=== PATIENT | male | born 1945 | race Caucasian/White ===

== ENCOUNTER 2017-06-23 06:14 | Inpatient (IN) | payer BC, OTHER ==
[2017-06-05 09:31] VITALS: BMI 37.0
--- NOTE | 2017-06-05 09:59 | PAT Medication Instructions ---
Service Date Jun 05, 2017. Current Home Medication List Aspirin (Aspirin Ec), 81 MG PO QAM Atorvastatin (Lipitor), 80 MG PO HS Fish Oil ([place]-3), 1 CAP PO 2-3 X WEK Flaxseed (Linseed) (Flax Seed Oil), 1,000 MG PO 2-3 X WEEK Lisinopril (Zestril), 20 MG PO QAM Multivitamin (Multivitamin), 1 TAB PO QAM Nitroglycerin (Nitrostat), 0.4 MG UT PRN PRN for Chest Pain Medication Instructions For Your Scheduled Surgery Continue as directed: Nitroglycerin (Nitrostat), 0.4 MG UT PRN PRN for Chest Pain - Hold the following medications 2 weeks prior to surgery: Fish Oil ([place]-3), 1 CAP PO 2-3 X WEK Flaxseed (Linseed) (Flax Seed Oil), 1,000 MG PO 2-3 X WEEK - Hold the following medications the morning of surgery: Lisinopril (Zestril), 20 MG PO QAM Multivitamin (Multivitamin), 1 TAB PO QAM - Take the following medications the morning of surgery with a sip of water: Aspirin (Aspirin Ec), 81 MG PO QAM - Take the following medications as scheduled the night before surgery: Atorvastatin (Lipitor), 80 MG PO HS If you have any questions please call us at [phone] or [phone] or [phone]
[2017-06-05 10:52] LABS: BASO % 0.2 %; BASO ABS # 0.02 K/uL (0-0.2); EOS % 2.9 %; EOS ABS # 0.24 K/uL (0-0.5); HEMATOCRIT 43.6 % (42-52); HEMOGLOBIN 14.6 g/dL (14.0-18.0); IG# 0.02 K/uL (0.00-0.02); LYMPH % 24.4 %; LYMPH ABS # 1.99 K/uL (1.2-3.4); MEAN CELL VOLUME 98.4 fL (80-100); MEAN CORPUSCULAR HGB CONC 33.5 g/dl (32-36); MEAN PLATELET VOLUME 9.4 fL (7.4-10.4); MONO % 8.2 %; MONO ABS # 0.67 K/uL (0.11-0.59); NEUT % 64.1 %; NEUT ABS # 5.21 K/uL (1.4-6.5); PLATELET COUNT 237 K/uL (130-400); RED CELL DISTRIBUTION WIDTH CV 13.9 % (11.5-14.5); RED CELL DISTRIBUTION WIDTH SD 49.7 fL (36.4-46.3); WHITE BLOOD COUNT 8.15 K/uL (4.8-10.8)
--- NOTE | 2017-06-05 11:00 | DIAGNOSTIC IMAGING REPORT ---
CHEST 2 VIEWS ROUTINE CLINICAL HISTORY: Preoperative chest COMPARISON STUDY: 10/22/2013 FINDINGS: The cardiac and mediastinal contours remain stable. There is chronic bibasal interstitial thickening/scarring.[There is no acute parenchymal consolidation. There is no failure. There are no pleural effusions. Degenerative changes are present within the dorsal spine with bridging calcification of the anterior longitudinal ligament. IMPRESSION: No significant change from the preceding study. No active disease in the chest. Electronically signed by: Juan Wells M.D. 06/05/2017 10:59 AM Dictated Date/Time: 06/05/2017 10:58 AM
[2017-06-05 11:03] LABS: PTT PATIENT 24.4 SECONDS (21.0-31.0)
[2017-06-05 11:17] LABS: BLOOD UREA NITROGEN 22 mg/dl (7-18); CALCIUM 9.1 mg/dl (8.5-10.1); CARBON DIOXIDE 26 mmol/L (21-32); CREATININE 0.75 mg/dl (0.60-1.40); GLUCOSE 93 mg/dl (70-99); POTASSIUM 4.4 mmol/L (3.5-5.1); SODIUM 138 mmol/L (136-145)
[~2017-06-23] VITALS: Ht 171.4 cm; Wt 105.8 kg
[2017-06-23] VITALS (19 sets, daily range): BP systolic 100–133; BP diastolic 56–69; PULSE 51–65; TEMP 36.3–36.8; O2SAT 94–100; Ht 171.4 cm; Wt 105.8 kg
[~2017-06-23 06:14] MED LIST: ACETAMINOPHEN 500 MG TAB PO SCH; ASPI81TA28 PO; ATOR-26 PO; CEFAZOLIN 2000MG IV PUSH 10 ML IV SCH; FAMOTIDINE 20 MG TAB PO SCH; FLAX1CAP11 PO; GABAPENTIN 300 MG CAP PO SCH; LACTATED RINGER'S 1000ML 1,000 ML IV SCH; LACTATED RINGER'S 1000ML 500 ML IV SCH; LACTATED RINGER'S 1000ML IV SCH; LISI-725 PO; METOCLOPRAMIDE HCL 10 MG TAB PO SCH; MULT-506 PO; NTRGSL/4 UT; OMEG10007 PO; SCOPOLAMINE 1.5 MG TDSY TD SCH; TRANEXAMIC ACID INJ 1,000 MG in SYRINGE 0 ML IV SCH
[2017-06-23] MEDS ORDERED: BUPIVACAINE 0.5 % 5 MG/1 ML PF 10ML VIAL ONE (06:37)
[2017-06-23] MEDS ORDERED: IBUP-103 PO (06:40)
--- NOTE | 2017-06-23 06:43 | History and Physical ---
History & Physical Date Jun 23, 2017. Chief Complaint Right Hip Pain. History of Present Illness The patient is a 71 year old male with complaints of Right Hip Pain. Progressive over past few years despite conservative care. Additional History Hepatic Disease: No Endocrine Disorder: No Kidney Disease: No Hypertension: Yes Heart Disease: Yes Bleeding Tendencies: No Infectious Diseases: No Allergies Coded Allergies: No Known Allergies (Unverified , 06/23/17) Home Medications Scheduled Aspirin (Aspirin Ec), 81 MG PO QAM Atorvastatin (Lipitor), 80 MG PO HS Fish Oil ([place]-3), 1 CAP PO 2-3 X Week Flaxseed (Linseed) (Flax Seed Oil), 1,000 MG PO 2-3 X WEEK Lisinopril (Zestril), 20 MG PO QAM Multivitamin (Multivitamin), 1 TAB PO QAM Scheduled PRN Ibuprofen Tab (Advil), 400 MG PO Q6 PRN for Pain Nitroglycerin (Nitrostat), 0.4 MG UT PRN PRN for Chest Pain Physical Examination Skin: warm/dry, no rash Eyes: normal inspection, EOMI, sclerae normal ENT: normal ENT inspection, pharynx normal Head: normocephalic, atraumatic Neck: supple, no adenopathy, trachea midline Respiratory/Chest: lungs clear, normal breath sounds, no respiratory distress Cardiovascular: regular rate, rhythm, no edema, no murmur Abdomen / GI: normal bowel sounds, non tender Back: normal inspection Extremities: normal inspection, normal range of motion Neurologic/Psych: no motor/sensory deficits, alert, normal reflexes, oriented x 3 Addiitonal Comments: Walks with limp. Pain with any hip ROM. Limited Internal Rotation. Diagnosis Severe Right Hip DJD Plan of Treatment Right Total Hip Arthroplasty.
--- NOTE | 2017-06-23 06:43 | History & Physical Bridge Note ---
H&P Re-Evaluation Bridge Note: I have examined the patient, reviewed the History & Physical and in the interval since the performance of the History & Physical I have noted the following changes of clinical significance: No changes noted
[2017-06-23] MEDS ORDERED: MIDAZOLAM HCL 1 MG/ML 2ML VIAL ONE ×2 (08:15→08:59)
[2017-06-23] MEDS ORDERED: BACITRACIN 50000 UNIT VIAL ONE (08:31)
[2017-06-23] MEDS ORDERED: BUPIVACAINE 0.5 % 5 MG/1 ML MPF 30ML VIAL ONE (08:31)
[2017-06-23] MEDS ORDERED: PROPOFOL IV EMULSION 10 MG/ML 20 ML VIAL IV ONE ×2 (08:59→09:53)
[2017-06-23] MEDS ORDERED: NALOXONE HCL INJ 1 MG in SODIUM CHLORIDE 0.9% 1000ML 1,000 ML IV PRN (09:00)
[2017-06-23] MEDS ORDERED: DiphenhydrAMINE HCL 50 MG/ML VIAL IV PRN (09:00)
[2017-06-23] MEDS ORDERED: SODIUM CHLORIDE 0.9% 1000ML 1,000 ML IV PRN (09:00)
[2017-06-23] MEDS ORDERED: MoRPHine SULFATE 2 MG/ML CARP IV PRN (09:00)
[2017-06-23] MEDS ORDERED: ONDANSETRON INJ 2 MG/ML 2 ML VIAL IV PRN (09:00)
[2017-06-23] MEDS ORDERED: NALBUPHINE HCL INJ 10 MG/ML AMP IV PRN (09:00)
[2017-06-23] MEDS ORDERED: NALOXONE HCL 0.4 MG/1 ML VIAL/CARP IV PRN (09:00)
[2017-06-23] MEDS ORDERED: KETOROLAC TROMETHAMINE 30 MG/ML VIAL IV. PRN (09:00)
[2017-06-23] MEDS ORDERED: EpHEDrine SULFATE INJ 50 MG/ML AMP IV PRN (09:00)
[2017-06-23] MEDS ORDERED: LACTATED RINGER'S 1000ML 500 ML IV PRN (09:00)
[2017-06-23] MEDS ORDERED: NO NARCOTICS OR SEDATIVES SCH (09:00)
[2017-06-23] MEDS ORDERED: MoRPHine SULFATE PF 1 MG/ML 10 ML AMP/VIAL EPI PRN (09:00)
[2017-06-23] MEDS ORDERED: NALOXONE HCL INJ 0.08 MG in SYRINGE 1.8 ML IV PRN (09:00)
[2017-06-23] MEDS ORDERED: MEPERIDINE HCL 25 MG/ML CARP IV PRN (09:00)
[2017-06-23] MEDS ORDERED: KETAMINE HCL INJ 50 MG/ML 10 ML VIAL ONE (09:09)
[2017-06-23] MEDS ORDERED: PHENYLEPHRINE 100MCG/ML 5ML SYR ONE (09:18)
[2017-06-23] MEDS ORDERED: ONDANSETRON INJ 2 MG/ML 2 ML VIAL ONE (09:18)
[2017-06-23] MEDS ORDERED: EpHEDrine SULFATE 50MG/5ML SYR ONE (09:18)
[2017-06-23] MEDS ORDERED: PHENYLEPHRINE HCL INJ 10 MG/ML VIAL ONE (09:24)
--- NOTE | 2017-06-23 10:35 | [facility] Post Operative Brief Note ---
Immediate Operative Summary Operative Date Jun 23, 2017. Pre-Operative Diagnosis Right hip degenerative joint disease Post-Operative Diagnosis Right hip degenerative joint disease Procedure(s) Performed Right total hip arthroplasty Surgeon Dr. Rosen [employer] Associate Surgeon(s) Mike Martinez PA-C Estimated Blood Loss 350 mL Findings Right Hip DJD Fluids (cc crystalloids) 1400 cc Specimens A: Right femoral head Drains None Anesthesia Spinal Complication(s) None Accompanied patient to RR where Post-op note done. Disposition Recovery Room / PACU
[2017-06-23] MEDS ORDERED: FLAXSEED 1000 MG PO SCH (10:45)
[2017-06-23] MEDS ORDERED: TAMSULOSIN HCL 0.4 MG CAP PO PRN (10:45)
[2017-06-23] MEDS ORDERED: NITROGLYCERIN 0.4 MG SL PER TAB CHARGE UT PRN (10:45)
[2017-06-23] MEDS ORDERED: CEFAZOLIN IV 2,000 MG in DEXTROSE 5% 50ML 50 ML IV SCH (10:45)
[2017-06-23] MEDS ORDERED: METOCLOPRAMIDE HCL INJ 5 MG/ML 2 ML VIAL IV PRN (10:45)
[2017-06-23] MEDS ORDERED: ALUMINUM/MAGNESIUM/SIMETH (MAALOX MAX) 30 ML UDC PO PRN (10:45)
[2017-06-23] MEDS ORDERED: BISACODYL 10 MG SUPP PR PRN (10:45)
[2017-06-23] MEDS ORDERED: SILVER SULFADIAZINE 1% CR 50 GM JAR EXT PRN (10:45)
[2017-06-23] MEDS ORDERED: MAGNESIUM HYDROXIDE SUSP 30 ML UDC PO PRN (10:45)
--- NOTE | 2017-06-23 11:33 | OPERATIVE REPORT ---
DATE OF OPERATION: 06/23/2017 PREOPERATIVE DIAGNOSIS: Right hip degenerative joint disease. POSTOPERATIVE DIAGNOSIS: Same. PROCEDURE PERFORMED: Right uncemented total hip arthroplasty. SURGEON: Dr. Rj Rosen. PHOTOENGRAVING APPRENTICE: Mike Martinez PA-C. COMPLICATIONS: None. ESTIMATED BLOOD LOSS: 350 mL. FLUID REPLACEMENT: 1400 mL crystalloid fluid replacement. ANESTHESIA: Spinal. DRAINS: None. SPECIMENS: Right femoral head sent for pathology. OPERATIVE INDICATIONS: The patient is a 71-year-old gentleman who has had a long history of multiple arthritic joints. He has had both of his knees replaced in the past. Over the past several years, he has developed increased pain and discomfort in his right hip. He had failed conservative treatment. It was really starting to limit his ability to maintain an independent lifestyle and he elected to proceed with total hip arthroplasty. OPERATIVE FINDINGS: Operative findings reveal advanced right hip DJD. 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 Some flattening of the femoral head. Moderate size joint effusion. OPERATIVE IMPLANTS: Operative implants consisted of: 1. Biomet G7 size 54 mm acetabular shell. 2. A 6.5 cancellous acetabular screws, 1 at 35 mm length and 1 at 30 mm length. 3. An apex hole eliminator. 4. Highly cross-linked polyethylene liner with 54 mm outer diameter, 36 mm inner diameter. 5. DePuy size 13.5 small stature AML femoral stem. 6. A +1.5 x 32 mm metal articular ball. OPERATIVE PROCEDURE: The patient taken to the operating room, identified and placed on the operating room table in the supine position. All contact areas were appropriately padded. IV antibiotics were provided by anesthesia team. A spinal anesthetic had been implemented in the holding area. Lim catheter was placed in sterile fashion. The patient was then placed in the left lateral decubitus position. An axillary roll was placed. [facility] was used for positioning. The right hip and leg were then prepped and draped in the usual sterile fashion. A posterolateral approach to the right hip was then performed through a curvilinear incision centered over the greater trochanter. Sharp dissection was carried down through the subcutaneous tissues down to the level of the IT band and gluteal fascia. The IT band and gluteal fascia was incised longitudinally in line with skin incision. The underlying greater trochanteric bursa was excised. The pyriformis, external rotators, and posterior capsule were then released from the posterior aspect of the femur as a single layer. Great care was taken throughout the procedure to protect the sciatic nerve at all times. Hip was internally rotated and dislocated. Femoral neck osteotomy cut was made with the final cut about 10 mm above the lesser trochanter. Femoral head was removed and sent for pathology. The femur was retracted anteriorly. Attention was then drawn to the acetabulum. The acetabular labrum was excised. The pulvinar fat was excised. Sequential reaming of the acetabulum was then performed beginning with a size 47 reamer and progressing up to a 53. A 54 mm Biomet G7 acetabular shell was then placed in about 40 degrees of lateral opening and 20 degrees of anteversion. It was fixed with two 6.5 cancellous acetabular screws. A trial liner was placed. Attention was then drawn to the femur. The proximal femur was entered with a cookie cutter followed by canal finder and lateralizing reamer. Sequential reaming of the femur was then performed beginning with a size 10 and progressing up to a 13. We were getting pretty good chatter at 13 and he did have some bow to his femur, so I elected to stop there. I then broached beginning with a size 10.5 small broach and progressing up to 13.5 small. We got good metaphyseal fit. I trialed the hip. The hip was fully stable, but I felt a little bit long with the +5 implant. We placed a +1.5 implant. The hip was fully stable in full extension and external rotation and flexion to 90 degrees, internal rotation over 50 degrees. There was a little bit of soft tissue laxity, but I felt his leg lengths were equal, so we accepted this. All trial implants were removed. An apex hole eliminator was placed. A highly cross-linked polyethylene liner was placed with the levin placed inferior and posterior to maximize his stability in flexion. A 13.5 small stature AML femoral stem was then placed. A +1.5/36 mm metal articular ball was placed. The hip was located and once again found to be stable. Attention was then drawn toward closing. The wound was irrigated with copious amounts of pulsatile lavage solution. I did inject locally with 60 mL of 0.5% Marcaine with epinephrine. The posterior capsule and external rotators were then repaired as a single layer through drill holes in the posterior trochanter with #2 Ti-Cron suture. The IT band and gluteal fascia were then closed with #1 PDS suture in running fashion. The subcutaneous tissues were then closed in 2 layers with a deep layer #1 Vicryl suture and subcutaneous tissues with 2-0 Dexon suture in a buried interrupted fashion. Skin was closed skin constance. Leg was then cleaned and dried and a sterile dressing of Xeroform, 4 x 4, ABD pad and foam tape was applied. The patient then transferred to the recovery room in stable condition. The patient tolerated the procedure with no complications. All needle and sponge counts were correct at the end of the operation. I attest to the content of the Intraoperative Record and any orders documented therein. Any exception s are noted below.
--- NOTE | 2017-06-23 11:51 | Anesthesiology Progress Note ---
Anesthesia Post Op Note Date & Time Jun 23, 2017 at 11:51 Vital Signs Pain Intensity: 0 Vital Signs Past 12 Hours Date Time Temp Pulse Resp B/P (MAP) Pulse Ox O2 Delivery O2 Flow Rate FiO2 06/23/17 11:05 63 20 107/65 98 Nasal Cannula 2 06/23/17 10:50 37.2 61 17 115/55 97 Nasal Cannula 2 06/23/17 10:43 70 13 106/61 97 Nasal Cannula 2 06/23/17 10:34 36.4 89 17 115/58 98 Nasal Cannula 2 06/23/17 06:47 36.7 58 18 133/67 95 Room Air Notes Mental Status: alert / awake / arousable, participated in evaluation Pt Amnestic to Procedure: Yes Nausea / Vomiting: adequately controlled Pain: adequately controlled Airway Patency, RR, SpO2: stable & adequate BP & HR: stable & adequate Hydration State: stable & adequate Neuraxial Anesthesia: was administered, sensory block is resolving Anesthetic Complications: no major complications apparent
[2017-06-23] MEDS: D5W AND 1/2NSS + 20MEQ KCL 1,000 ML IV SCH ×2 (13:11→19:53)
[2017-06-23] MEDS: ACETAMINOPHEN 500 MG TAB PO SCH ×2 (14:02→21:47)
--- NOTE | 2017-06-23 15:25 | DIAGNOSTIC IMAGING REPORT ---
R PELVIS/UNILATERAL HIP 1 VIEW HISTORY: 71 years-old Male IN PACU - A/P PELVIS and LATERAL HIP INCLUDING ALL OF IMPLANT status post right hip arthroplasty. Degenerative joint disease. COMPARISON: Right hip radiographs 06/10/2017 TECHNIQUE: AP view the pelvis with crosstable lateral view of the right hip FINDINGS: Bony pelvis appears intact. No pelvic ring fracture identified. Severe left hip osteoarthritis. Status post right hip arthroplasty with satisfactory alignment. No periprosthetic fracture or malalignment. Skin constance are noted along with deep tissue air and soft tissue swelling about the right hip. IMPRESSION: Right hip arthroplasty with satisfactory alignment. The above report was generated using voice recognition software. It may contain grammatical, syntax or spelling errors. Electronically signed by: Isai Lerma M.D. 06/23/2017 3:24 PM Dictated Date/Time: 06/23/2017 3:22 PM
[2017-06-23] MEDS: CHECK SCOPOLAMINE PATCH PLACEMENT SCH ×2 (15:42→23:36)
[2017-06-23] MEDS: CEFAZOLIN IV 2,000 MG in SYRINGE 0 ML IV SCH ×2 (15:42→23:36)
[2017-06-23] MEDS ORDERED: TRANEXAMIC ACID INJ 1,000 MG in SODIUM CHLORIDE 0.9% 100ML 100 ML IV SCH (16:30)
[2017-06-23] MEDS: FERROUS GLUCONATE 324 MG TAB PO SCH (17:41)
[2017-06-23] MEDS: KETOROLAC TROMETHAMINE 15 MG/ML VIAL IV. SCH ×2 (17:42→23:36)
[2017-06-23] MEDS: DOCUSATE SODIUM 100 MG CAP PO SCH (20:42)
[2017-06-23] MEDS: ASPIRIN 325 MG ECTAB PO SCH (20:42)
[2017-06-23] MEDS: ATORVASTATIN 40 MG TAB PO SCH (20:43)
[2017-06-23] MEDS: SENNA 8.6 MG TAB PO SCH (20:43)
[2017-06-24] VITALS (10 sets, daily range): BP systolic 109–155; BP diastolic 58–72; PULSE 60–77; TEMP 36.5–37.8; O2SAT 94–99
[2017-06-24] MEDS: D5W AND 1/2NSS + 20MEQ KCL 1,000 ML IV SCH ×2 (01:59→08:30)
[2017-06-24] MEDS ORDERED: DC INTRASPINAL MORPHINE SCH (02:30)
[2017-06-24] MEDS ORDERED: ONDANSETRON INJ 2 MG/ML 2 ML VIAL IV PRN (02:30)
[2017-06-24] MEDS ORDERED: HYDROmorphone INJ 0.5 MG/0.5 ML SYR IV PRN (02:30)
[2017-06-24] MEDS ORDERED: ZOLPIDEM TARTRATE 5 MG TAB PO PRN (02:30)
[2017-06-24 06:00] LABS: BASO % 0.3 %; BASO ABS # 0.03 K/uL (0-0.2); EOS % 2.2 %; HEMATOCRIT 35.9 % (42-52); HEMOGLOBIN 11.9 g/dL (14.0-18.0); IG# 0.03 K/uL (0.00-0.02); LYMPH % 14.3 %; LYMPH ABS # 1.32 K/uL (1.2-3.4); MEAN CELL VOLUME 98.1 fL (80-100); MEAN CORPUSCULAR HEMOGLOBIN 32.5 pg (25-34); MEAN CORPUSCULAR HGB CONC 33.1 g/dl (32-36); MEAN PLATELET VOLUME 9.5 fL (7.4-10.4); MONO % 10.2 %; MONO ABS # 0.94 K/uL (0.11-0.59); NEUT % 72.7 %; NEUT ABS # 6.73 K/uL (1.4-6.5); PLATELET COUNT 215 K/uL (130-400); RED CELL DISTRIBUTION WIDTH CV 13.4 % (11.5-14.5); RED CELL DISTRIBUTION WIDTH SD 48.5 fL (36.4-46.3); WHITE BLOOD COUNT 9.25 K/uL (4.8-10.8)
[2017-06-24] MEDS: KETOROLAC TROMETHAMINE 15 MG/ML VIAL IV. SCH ×3 (06:05→17:45)
[2017-06-24] MEDS: ACETAMINOPHEN 500 MG TAB PO SCH ×3 (06:06→22:06)
[2017-06-24 06:30] LABS: CALCIUM 7.8 mg/dl (8.5-10.1); CREATININE 0.88 mg/dl (0.60-1.40); POTASSIUM 4.2 mmol/L (3.5-5.1)
--- NOTE | 2017-06-24 07:57 | PROGRESS NOTE ---
DATE: 06/24/2017 SUBJECTIVE: A 71-year-old gentleman postop day 1 from right total hip replacement. He is doing well. Denies any significant pain. No chest pain or shortness of breath. Not feeling dizzy or lightheaded. OBJECTIVE: VITAL SIGNS: Temperature 36.9. Vital signs stable. GENERAL: Reveals a pleasant, middle-aged male. He is sitting up in bed and looks pretty comfortable. LUNGS: Clear to auscultation. HEART: Regular rate and rhythm. ABDOMEN: Soft, nontender, nondistended. EXTREMITIES: Grossly neurovascularly intact except as follows: Examination of the right hip and leg reveals leg lengths to be equal. His dressing is clean, dry and intact. Thigh is soft and supple. No significant swelling. Hip is located. He is neurologically intact. He can dorsiflex and plantarflex his foot appropriately. LABORATORY DATA: Hemoglobin 11.9, hematocrit 35.9. Electrolytes are stable. ASSESSMENT: A 71-year-old gentleman postop day 1 from right total hip replacement, doing well. Pain is controlled. Hip is located. He is neurologically intact. PLAN: 1. DVT prophylaxis including thigh-high TEDs, SCDs, and aspirin twice a day. 2. PT/OT. Weightbearing as tolerated. Right total hip protocol. 3. Pain control, doing well with current pain regimen. 4. Disposition: Plan to discharge to home with some home health once adequately recovered.
[2017-06-24] MEDS: CHECK SCOPOLAMINE PATCH PLACEMENT SCH ×2 (08:28→16:13)
[2017-06-24] MEDS: LISINOPRIL 20 MG TAB PO SCH (08:31)
[2017-06-24] MEDS: FERROUS GLUCONATE 324 MG TAB PO SCH ×3 (08:31→17:45)
[2017-06-24] MEDS: MULTIVITAMIN TAB PO SCH (08:31)
[2017-06-24] MEDS: ASPIRIN 325 MG ECTAB PO SCH ×2 (08:32→20:00)
[2017-06-24] MEDS: DOCUSATE SODIUM 100 MG CAP PO SCH ×2 (08:32→20:01)
[2017-06-24] MEDS: TRAMADOL HCL 50 MG TAB PO PRN (08:35)
[2017-06-24] MEDS ORDERED: PANTOprazole SOD 40 MG TAB PO SCH (09:00)
[2017-06-24] MEDS ORDERED: MULTIVITAMIN TAB PO SCH (09:00)
[2017-06-24] MEDS ORDERED: ULT50X PO (17:51)
[2017-06-24] MEDS ORDERED: ASPEC325 PO (17:51)
[2017-06-24] MEDS ORDERED: ACET-24 PO (17:51)
--- NOTE | 2017-06-24 17:54 | Discharge Instructions ---
Discharge Instructions Date of Service Jun 24, 2017. Admission Reason for Admission: Right Hip Degenerative Joint Disease Discharge Discharge Diagnosis / Problem: Right Hip Replacement Discharge Goals Goal(s): Decrease discomfort, Improve function, Increase independence, Improve disease control, Therapeutic intervention Activity Recommendations Activity Limitations: per Instructions/Follow-up section (Total Hip Precautions ) Weightbearing Status: Right weightbearing . Instructions / Follow-Up Instructions / Follow-Up ACTIVITY RECOMMENDATIONS: Physical Therapy: * Aggressive physical therapy is not usually needed. You will learn to take care of yourself safely and walk. * Follow the "Hip Precautions Instructions." * In some cases, the social worker school at the hospital will arrange to have a therapist come to your house for the first couple of weeks to help you learn these skills. * You need to practice on your own or with the help of a family member as needed. * When you learn these skills, most of the therapy can be done on your own. Home Exercise: * You were shown a series of exercises in the hospital. Do these exercises three to four times each day including the exercises you were shown in physical therapy. Walking: * Get up and walk several times each day. For the first four weeks, try not to stand or walk for more than one hour at a time. If you do stand or walk for more than one hour, you will not hurt anything, but your leg will likely swell. * As you feel comfortable, you may change from the walker or crutches to a cane and then to independent walking. MEDICATIONS: New Medicine: * You will likely be taking one or more of these medicines: 1. Tramadol - Take, as directed, when you need it, every four to six hours to control your pain. 2. Aspirin - Thins your blood to lessen the chance of forming a blood clot. * The most common side effects of pain medicine and iron are nausea and constipation. If nausea or constipation is too much of a problem or if you have any questions about your new medicines or doses, call [facility] at [phone]. We will try to help you manage these issues. VERY IMPORTANT TO READ AND REVIEW" Pain: * The immediate post-operative period after hip replacement surgery is often quite painful. * You are given a prescription for pain medicine. You should take it, as directed, when you need it, especially before physical therapy and before going to bed. Pain that interferes with sleep is very common and can last several months. * You will likely need pain medicine for the first two to four weeks. It will not stop all of the pain. The pain will lessen and as you feel better, you may change to milder pain medicine such as Tylenol. * The most common side effects of pain medicine are nausea and constipation, so don't take more than you need. SPECIAL CARE INSTRUCTIONS: TEDs/Elastic Stockings: * The white elastic stockings help limit swelling and prevent blood clots from forming in your legs. The more you wear them, the more they work. * Wear them for six weeks. Prevention of Infection: * Take antibiotics one hour before any dental cleaning, dental work, urological procedure, gastrointestinal procedure or any invasive surgery in order to prevent your new joint from getting infected. * You may get the antibiotics from the doctor performing the procedure or you may call our office at before and we will call in a prescription to the pharmacy of your choice. Things to Watch For: * Drainage from the incision site that occurs more than one week after your surgery. * Severely increased leg pain or swelling. * Increased redness at the incision site. * Fever above 102 degrees Fahrenheit. * Unusual chest pain or shortness of breath. * Unusual pain or burning with urination. Call [facility] at with any of the above problems or if you have any questions about your medicines or recovery. FOLLOW UP VISIT: Make an appointment to see your doctor for approximately two weeks after surgery for a progress check and staple removal by calling the office at . Current Hospital Diet Patient's current hospital diet: Regular Diet Discharge Diet Recommended Diet: Regular Diet Procedures Procedures Performed: Right total hip arthroplasty Pending Studies Studies pending at discharge: no Medical Emergencies . Who to Call and When: Medical Emergencies: If at any time you feel your situation is an emergency, please call [phone] immediately. . Non-Emergent Contact Non-Emergency issues call your: Surgeon . "Provider Documentation" section prepared by Rj Rosen. . VTE Core Measure Inpt VTE Proph given/why not?: Other Anticoagulation, T.E.D. Stockings, SCD's
[2017-06-24] MEDS: SENNA 8.6 MG TAB PO SCH (20:00)
[2017-06-24] MEDS: ATORVASTATIN 40 MG TAB PO SCH (20:01)
[2017-06-24] MEDS ORDERED: NURSING VERBAL MED ORDER ONE (20:30)
[2017-06-25] MEDS: CHECK SCOPOLAMINE PATCH PLACEMENT SCH ×2 (00:10→07:43)
[2017-06-25] MEDS: KETOROLAC TROMETHAMINE 15 MG/ML VIAL IV. SCH ×3 (00:11→12:00)
[2017-06-25 06:10] VITALS: BP 131/67; PULSE 62; TEMP 36.8; O2SAT 94
[2017-06-25] MEDS: ACETAMINOPHEN 500 MG TAB PO SCH (06:13)
[2017-06-25] MEDS: LISINOPRIL 20 MG TAB PO SCH (07:43)
[2017-06-25] MEDS: MULTIVITAMIN TAB PO SCH (07:43)
[2017-06-25] MEDS: FERROUS GLUCONATE 324 MG TAB PO SCH ×2 (07:43→12:30)
[2017-06-25] MEDS: ASPIRIN 325 MG ECTAB PO SCH (07:43)
[2017-06-25] MEDS: DOCUSATE SODIUM 100 MG CAP PO SCH (07:44)
[2017-06-25] MEDS: TRAMADOL HCL 50 MG TAB PO PRN (07:46)
--- NOTE | 2017-06-25 07:54 | PROGRESS NOTE ---
DATE: 06/25/2017 SUBJECTIVE: A 71-year-old gentleman postop day #2 from a right total hip replacement. He is doing pretty well. Pain has been very well controlled. No chest pain or shortness of breath. Not feeling dizzy or lightheaded. OBJECTIVE: VITAL SIGNS: Temperature is 36.8. Vital signs stable. GENERAL: Physical examination reveals a healthy, pleasant, middle-aged male. He is lying in bed and looks comfortable. LUNGS: Clear to auscultation. HEART: Has a regular rate and rhythm. ABDOMEN: Soft, nontender, and nondistended. EXTREMITIES: Grossly neurovascularly intact except as follows: Examination of the right hip and leg reveals the dressing to be clean, dry and intact. Thigh is soft and supple. Hip is located. He is neurologically intact. ASSESSMENT: A 71-year-old gentleman postop day #2 from a right total hip replacement, doing well. Pain is controlled. Hip is located. He is neurologically intact. PLAN: 1. DVT prophylaxis including thigh-high TEDs, SCDs, and aspirin twice a day. 2. PT/OT. Weightbear as tolerated. Right total hip protocol. 3. Pain control. Doing well with current pain regimen. 4. Disposition: Plan to discharge to home with some home health likely later today if he does okay in therapy.
[2017-06-25 09:28] VITALS: BP 131/71; PULSE 69; O2SAT 97
[2017-06-25 12:41] VITALS: BP 131/67; PULSE 62; TEMP 36.8; O2SAT 94
== END 2017-06-25 13:48 | disposition home health service (06) | DRG 470 ==
LOC: C.ACU 06:14 → C.3E 06:35 → ENRESERV 10:58
PROVIDERS: ADMIT Orthopaedic Surgery Sports Medicine; ATTEND Orthopaedic Surgery Sports Medicine
PROC: 0SR902A Replacement of Right Hip Joint with Metal on Polyethylene Synthetic Substitute, Uncemented, Open Approach (ICD-10-PCS; principal; 2017-06-23 09:00)
DX: M16.11 Unilateral primary osteoarthritis, right hip (principal); I10 Essential (primary) hypertension; I25.10 Atherosclerotic heart disease of native coronary artery without angina pectoris; Z79.82 Long term (current) use of aspirin

== ENCOUNTER 2021-05-10 16:27 | Inpatient (IN) ==
[2021-05-10 17:13] LABS: Basophils # (auto) 0.02 K/uL (0-0.2); Basophils % (auto) 0.3 %; Eosinophils # (auto) 0.17 K/uL (0-0.5); Eosinophils % (auto) 2.6 %; Hematocrit (blood only) 45.2 % (42-52); Hemoglobin 14.6 g/dL (14.0-18.0); Immature Granulocytes # (auto) 0.01 K/uL (0.00-0.02); Immature Granulocytes % (auto) 0.2 %; Lymphocytes % (auto) 27.9 %; Mean Corpuscular Hemoglobin 32.9 pg (25-34); Mean Corpuscular Hgb Conc 32.3 g/dL (32-36); Mean Corpuscular Volume 101.8 fL (80-100); Mean Platelet Volume 9.5 fL (7.4-10.4); Monocytes # (auto) 0.64 K/uL (0.11-0.59); Monocytes % (auto) 9.9 %; Neutrophils # (auto) 3.81 K/uL (1.4-6.5); Neutrophils % (auto) 59.1 %; Platelet Count 291 K/uL (130-400); RDW Coefficient of Variation 16.9 % (11.5-14.5); RDW Standard Deviation 63.6 fL (36.4-46.3); Red Blood Count 4.44 M/uL (4.7-6.1); White Blood Count 6.45 K/uL (4.8-10.8)
--- NOTE | 2021-05-10 17:17 | XRay Report ---
XR chest 1V portable CLINICAL HISTORY: SOB. COMPARISON STUDY: 06/01/2018 TECHNIQUE: 1 view of the chest FINDINGS: Single frontal view of the chest demonstrates the heart size to be enlarged. There is diffuse interst itial and alveolar edema most characteristic of congestive heart failure. There is also evidence for left pleural effusion and left basilar atelectasis. No definite confluent alveolar opacities are seen . There is no evidence for vascular congestion. There is no acute osseous pathology. IMPRESSION: Diffuse interstitial and alveolar edema most characteristic of congestive heart failure. Small left pleural effusion and left basilar atelectasis also present. ACT 112: Negative or not required by law. Electronically signed by: Juan Fermin M.D. 05/10/2021 5:16 PM
[2021-05-10 17:22] LABS: INR 1.3 (0.9-1.1); Partial Thromboplastin Time 26.4 Seconds (21.0-31.0); Prothrombin Time 12.6 Seconds (9.0-12.0)
[2021-05-10 17:31] LABS: Albumin Level 2.9 gm/dl (3.4-5.0); BUN Creatinine Ratio 18.6 (10-20); Calcium 8.8 mg/dl (8.5-10.1); Creatinine Clr Calc Pharmacy 60.9 ml/min; Est GFR (African American) 60.3 ml/min; Magnesium 1.9 mg/dl (1.8-2.4); Potassium 5.1 mmol/L (3.5-5.1)
[2021-05-10] MEDS ORDERED: dilTIAZem HCl 5 MG/ML 5 ML VIAL IV STA (17:35)
[2021-05-10] MEDS ORDERED: STAT IV Infusion **Titration per Protocol STA (17:35)
[2021-05-10 17:39] LABS: Albumin Globulin Ratio 0.7 (0.9-2); Bilirubin,Total 1.5 mg/dl (0.2-1); Globulin 3.9 gm/dl (2.5-4.0); Total Protein 6.8 gm/dl (6.4-8.2); Troponin I 0.08 ng/ml (0-0.045)
[2021-05-10] MEDS ORDERED: Heparin IV Adult Wt-Based Low-Dose WITH Bolus Protocol STA (17:40)
--- NOTE | 2021-05-10 17:45 | Emergency Department Note ---
Impression & Plan Atrial fibrillation with rapid ventricular response, Severe aortic stenosis, CHF (congestive heart failure), Pulmonary edema ED Provider Note Provider: Arcenio Vaughn MD DATE OF SERVICE: 05/10/2021 CHIEF COMPLAINT: Fatigue, shortness of breath, swelling HISTORY OF PRESENT ILLNESS: Patient is a 75-year-old gentleman history of CAD, hypertension, and severe aortic stenosis who presents here today stating over the past 2 to 4 weeks he is developed little bit more fatigue and dyspnea on exe rtion. Reports he is noticed increase swelling in his legs and now through his abdomen. Patient denies any pain. Denies significant fevers or nausea or vomiting. Patient denies a history of similar. Patient states he cannot lie flat to sleep anymore and again feels swollen in his legs into the abdomen. Patient states he has noticed time his heart rates been elevated but denies a sensation of palpitations. Again denies chest pain. Follows with mom any cardiology. Patient is on a baby aspirin. Patient states over the past 2 to 3 weeks he is noted may be a 20 pound weight gain. REVIEW OF SYSTEMS: A total of 10 review of systems was obtained and negative except as stated above in the HPI. PAST MEDICAL HISTORY: As noted above MEDICATIONS:reviewed home medications SOCIAL HISTORY: Lives at home PHYSICAL EXAM: GENERAL: alert and oriented in no acute distress seated on stretcher Head: normocephalic and atraumatic EYES: No injection, discharge or icterus. NECK: Trachea midline. LUNGS: Airway patent. No retractions. Breath sounds clear with good air entry bilaterally. HEART: Tachycardic irregularly irregular rate and rhythm. No chest wall tenderness ABDOMEN: Soft and non-tender, without guarding or rebound with mild distention BACK: No midline tenderness, No bilateral flank tenderness. SKIN: Acyanotic, warm, dry EXTREMITIES: Bilateral lower extremity edema approximately 3+ without obvious weeping. NEUROLOGICAL: No focal deficits. No aphasia. No facial droop or slurred speech. Ambulatory. EK bpm atrial fibrillation with rapid ventricular response. Right bundle branch block is noted. Some inferior lateral T wave and ST changes are noted without acute ST segment elevation. CONTINUOUS CARDIAC MONITORING: was ordered and showed a heart rate of 150s to 110s bpm in atrial fibrillation Patient's laboratory studies and imaging reviewed. Differential includes Infection, dehydration, metabolic abnormality, hypo/hyperglycemia, electrolyte disturbance, anemia, hypoxia, cardiac sources, intracerebral event, toxicologic, neurologic, as well as other pathologies. IMPRESSION/MEDICAL DECISION MAKING: Patient appears to be significantly fluid overloaded and pulmonary edema on the x-ray per radiology. Not hypoxic here. Appears to be a new onset atrial f ibrillation. Severe aortic stenosis history from records reported by the patient. Likely A. fib new onset with RVR is pushing him into CHF. Discussed with him and his daughter at bedside at length. Electrolytes completed without severe abnormality. Minimal troponin elevation but no chest pain or obvious STEMI believe this is likely related more to demand related. Will start on diltiazem drip for better rate control. If blood pressure tolerates after this will start with some Lasix for diuresis. Patient will need diuresis given what appears to be significant fluid overload. Heparin drip to be started given risk factors as for stroke prevention. Discussed with patient and daughter at bedside plan of care. Hospitalist contacted. DIAGNOSIS: New onset A. fib RVR, CHF exacerbation, aortic stenosis, pulmonary edema DISPOSITION: Hospitalist will evaluate Patient was agreeable with this plan. Critical Care I have personally spent 31 minutes of critical care time in the direct management of this patient. This includes bedside care, interpretation of di agnostic studies, and testing, discussion with consultants, patient, and family members, and other required patient management activities. These 31 minutes is in excess of all separately billable procedures. Past Med/Surg History Medical History (Updated 05/10/21 @ 19:08 by Mayte Rosen PA-C) Anxiety H/O - SITUATIONAL Arthritis of right shoulder region CAD (coronary artery disease) s/p ANA x 2009. DSE 08/2017 negative for ischemia. 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) Osteoarthritis Severe aortic stenosis Surgical History History of adenoidectomy History of cardiac cath 2009 WITH ANA x 3 History of colonoscopy History of heart artery stent ADVISED TO BRING CARDS History of tonsillectomy History of tooth extraction History of total hip arthroplasty RIGHT History of total knee replacement BILATERAL History of total left hip arthroplasty Family History Other Heart disease Social History (Updated 05/10/21 @ 19:06 by Mayte Rosen PA-C) Smoking Status: Never smoker Second Hand Exposure: No; Hx Alcohol Use: Yes Alcohol type: beer, wine and hard liquor Alcohol Intake Frequency: 2-4 x/Month Hx Substance Use: No Preferred Language: Albanian Communication Ability: Effective Deputy Director Of Finance Required: No Beliefs That Will Affect Care: None Current Living Situation: Alone Feels Safe at Home: Yes Assistive Devices: Walker Allergies Allergies Allergy/AdvReac Type Severity Reaction Status Date / Time No Known Drug Allergies Allergy Verified 05/10/21 17:52 Home Meds Home Medications Medication Instructions Recorded Confirmed nitroglycerin 0.4 mg sublingual 1 dose SUBLINGUAL UD PRN 05/29/18 05/10/21 tablet omega 9-vsp-obn-fish oil 1,000 mg 1 cap PO QAM 05/29/18 05/10/21 (120 mg-180 mg) capsule (Fish Oil) aspirin 81 mg tablet,delayed 81 mg PO QAM 07/09/19 05/10/21 release psyllium 1 packet PO DAILY 05/10/21 05/10/21 Previous Rx's Medication Instructions Recorded lisinopril 40 mg tablet 40 mg PO QAM #30 tab 06/24/20 atorvastatin 80 mg tablet 80 mg PO HS #90 tab 11/24/20 Results & Data (ED) Vital Signs Vital Signs - 24 hr 05/10/21 16:41 Temperature 36.7 C Temperature Source Temporal Artery Scan Pulse Rate 149 H Respiratory Rate 18 Respiratory Depth Normal Blood Pressure 116/89 Blood Pressure Mean 98 Pulse Oximetry 95 Oxygen Delivery Method Room Air Sepsis Recent Fever Within 48 Hours No Sepsis New/Unexplained Change in Mental Status No Sepsis Action Taken by Nursing No Action Required Laboratory Data Result diagrams: 05/10/21 17:03 05/10/21 17:03 Lab Results 05/10/21 05/10/21 05/10/21 Range/Units 17:03 17:03 17:03 WBC 6.45 (4.8-10.8) K/uL RBC 4.44 L (4.7-6.1) M/uL Hgb 14.6 (14.0-18.0) g/dL Hct 45.2 (42-52) % MCV 101.8 H (80-100) fL MCH 32.9 (25-34) pg MCHC 32.3 (32-36) g/dL RDW Std Deviation 63.6 H (36.4-46.3) fL RDW Coeff of Meghan 16.9 H (11.5-14.5) % Plt Count 291 (130-400) K/uL MPV 9.5 (7.4-10.4) fL Immature Gran % (Auto) 0.2 % Neut % (Auto) 59.1 % Lymph % (Auto) 27.9 % [place] % (Auto) 9.9 % Eos % (Auto) 2.6 % Baso % (Auto) 0.3 % Neut # (Auto) 3.81 (1.4-6.5) K/uL Lymph # (Auto) 1.80 (1.2-3.4) K/uL [place] # (Auto) 0.64 H (0.11-0.59) K/uL Eos # (Auto) 0.17 (0-0.5) K/uL Baso # (Auto) 0.02 (0-0.2) K/uL Immature Gran # (Auto) 0.01 (0.00-0.02) K/uL PT 12.6 H (9.0-12.0) Seconds INR 1.3 H (0.9-1.1) APTT 26.4 (21.0-31.0) Seconds PTT Ratio 1.0 Sodium 142 (136-145) mmol/L Potassium 5.1 (3.5-5.1) mmol/L Chloride 110 H (98-107) mmol/L Carbon Dioxide 24 (21-32) mmol/L Anion Gap 8.0 (3-11) BUN 25 H (7-18) mg/dl Creatinine 1.32 (0.6-1.4) mg/dl Est Cr Clr Drug Dosing 60.9 ml/min Est GFR ( Amer) 60.3 ml/min Est GFR (Non-Af Amer) 52.0 ml/min BUN/Creatinine Ratio 18.6 (10-20) Glucose 117 H (70-99) mg/dl Calcium 8.8 (8.5-10.1) mg/dl Magnesium 1.9 (1.8-2.4) mg/dl Total Bilirubin 1.5 H (0.2-1) mg/dl AST 62 H (15-37) U/L ALT 83 H (12-78) U/L Alkaline Phosphatase 110 (45-117) U/L Troponin I 0.080 H* (0-0.045) ng/ml NT-Pro-B Natriuret Pep 3679 H (0-1800) pg/ml Total Protein 6.8 (6.4-8.2) gm/dl Albumin 2.9 L (3.4-5.0) gm/dl Globulin 3.9 (2.5-4.0) gm/dl Albumin/Globulin Ratio 0.7 L (0.9-2) TSH 5.080 H (0.300-4.500) uIu/ml Free T4 1.40 (0.8-1.6) ng/dl Administered Medications Atorvastatin Calcium (Atorvastatin 40 Mg Tab) 80 mg PO HS MARGIE Stop: 06/09/21 21:29 Last Admin: 05/10/21 22:01 Dose: 80 mg Documented by: [id number] Diltiazem HCl 125 mg/ Dextrose 125 mls @ 15 mls/hr IV .Q8H20M MARGIE; Protocol Stop: 06/09/21 17:44 Last Titration: 05/10/21 21:26 Dose: 15 mg/hr, 15 mls/hr Documented by: [id number] Cosigned by: [id number] Titration: 05/10/21 18:46 Dose: 10 mg/hr, 10 mls/hr Documented by: [id number] Cosigned by: [id number] Admin: 05/10/21 18:10 Dose: 5 mg/hr, 5 mls/hr Documented by: [id number] Cosigned by: [id number] Heparin Sodium/Dextrose (Heparin Sodium/Dextrose) 25,000 units in 500 mls @ 20 mls/hr IV .Q24H MARGIE; Protocol Stop: 06/09/21 17:59 Last Admin: 05/10/21 18:32 Dose: 1,000 units/hr, 20 mls/hr Documented by: [id number] Cosigned by: [id number] Discontinued Medications Diltiazem HCl (Diltiazem Hcl 5 Mg/Ml 5 Ml Vial) 10 mg IV NOW STA Stop: 05/10/21 17:36 Last Admin: 05/10/21 17:43 Dose: 10 mg Documented by: [id number] Cosigned by: [id number] Furosemide (Furosemide Inj 20 Mg/2 Ml Vial) 20 mg IV ONE ONE Stop: 05/10/21 18:55 Last Admin: 05/10/21 19:34 Dose: Not Given Documented by: [id number] Furosemide (Furosemide 40 Mg/4 Ml Vial) Confirm Administered Dose 40 mg IV .STK- MED ONE Stop: 05/10/21 19:28 Last Admin: 05/10/21 19:34 Dose: 20 mg Documented by: [id number] Heparin Sodium (Porcine) (Heparin Sod (Porcine) 1000 Unit/Ml) 1 units IV NOW ONE Stop: 05/10/21 17:57 Last Admin: 05/10/21 18:31 Dose: 4,000 units Documented by: [id number] Cosigned by: [id number] Heparin Sodium/Dextrose (Heparin Iv Adult Wt-Based Low-Dose With Bolus Protocol) 1 ea N/A NOW STA; Protocol Stop: 05/10/21 17:41 Last Admin: 05/10/21 18:46 Dose: Not Given Documented by: [id number] Miscellaneous (Stat Iv Infusion Titration Per Protocol) 1 ea N/A NOW STA Stop: 05/10/21 17:36 Last Admin: 05/10/21 18:46 Dose: Not Given Documented by: [id number] Imaging Data Radiologist's Impression: Chest X-Ray 05/10/21 16:45 XR chest 1V portable CLINICAL HISTORY: SOB. COMPARISON STUDY: 06/01/2018 TECHNIQUE: 1 view of the chest FINDINGS: Single frontal view of the chest demonstrates the heart size to be enlarged. There is diffuse interstitial and alveolar edema most characteristic of congestive heart failure. There is also evidence for left pleural effusion and left basilar atelectasis. No definite confluent alveolar opacities are seen. There is no evidence for vascular congestion. There is no acute osseous pathology. IMPRESSION: Diffuse interstitial and alveolar edema most characteristic of congestive heart failure. Small left pleural effusion and left basilar a telectasis also present. ACT 112: Negative or not required by law. Electronically signed by: Juan Fermin M.D. 05/10/2021 5:16 PM Discharge Plan Visit Data Chief Complaint: Shortness of Breath/Dyspnea Stated Complaint: SOB, SWELLING IN LEGS ED Provider: Arcenio Vaughn Discharge Problem: Atrial fibrillation with rapid ventricular response, Severe aortic stenosis, CH F (congestive heart failure), Pulmonary edema Patient Disposition: Admitted As Inpatient Discharge Instructions Interventions: ED Discharge Assessment Last Done: 05/10/21 20:57 Discharge Problem: Pulmonary edema Qualifiers: Chronicity: acute Qualified Code(s): J81.0 - Acute pulmonary edema
[2021-05-10] MEDS ORDERED: HEPARIN SOD (PORCINE) 1000 UNIT/ML IV ONE (17:56)
[2021-05-10] MEDS: dilTIAZem HCL 125 MG in DEXTROSE 5% 100 ML IV SCH (18:10)
--- NOTE | 2021-05-10 18:17 | History & Physical Report ---
Date of Service May 10, 2021 Assessment & Plan (1) Acute decompensated heart failure: (2) Severe aortic stenosis: Plan: This is a 75yo M with a PMH of severe aortic stenosis, CAD, hypertension, HLD and other medical problems listed below who presents with worsening exertional dyspnea and weight gain x 2 weeks and was found to have new onset A fib with RVR and decompensated heart failure. Exertional dyspnea, orthopnea, PND and 20-25lb weight gain in past 2 weeks CXR with diffuse interstitial and alveolar edema most characteristic of congestive heart failure. Small left pleural effusion and left basilar atelectasis also present Follows with Dr. Chun, stable severe aortic stenosis present on last echo in August 2020. Repeat echo ordered Is not on diuretics normally. Given 20mg IV Lasix x 1 this evening Strict I&Os, daily weights, abdominal u/s given significant overload Routine cardiology consult (3) Atrial fibrillation with rapid ventricular response: Plan: New onset A fib with RVR, HR 149 in setting of decompensated HF Given diltiazem bolus and drip started in ED, plan to continue in PCU IV heparin started for anticoagulation (4) Elevated troponin: Plan: Initial troponin 0.080, likely demand ischemia in setting of volume overload, No chest pain, continue trending troponin, tele (5) CAD (coronary artery disease): Plan: Stable. Continue baby aspirin, statin (6) Hypertension: Plan: Continue lisinopril (7) HLD (hyperlipidemia): Plan: Continue statin DVT Ppx: IV heparin Code status: Conditional - YES to CPR/shocks, NO to intubation PCP: JENNIFER Quezada Dispo: Admitted to PCU Patient seen in collaboration with Dr. Valenzuela. Please see addendum. History of Present Illness Chief Complaint: exertional dyspnea, weight gain Primary Care Provider: Cassandra Quezada PA-C This is a 75yo M with a PMH of severe aortic stenosis, CAD, hypertension, HLD and other medical problems listed below who presents with worsening exertional dyspnea and weight gain x 2 weeks. Endorses a 20-25 pound weight gain in the past few weeks noted in his abdomen and lower legs. Also endorsing dyspnea nof exertion, having to stop and rest after walking 50 feet. +Orthopnea and PND. Dry cough. Lives alone and is active at baseline, cleaning his own house and mowing the lawn. No fever, chills, lightheadedness, chest pain. No palpitations. No eddie sea, vomiting, abdominal pain, dysuria, diarrhea or constipation. Follows with Dr. Chun for cardiology. Severe aortic stenosis unchanged on prior echo from August 2020. No dietary changes and takes medication regularly. Allergies Allergy/AdvReac Type Severity Reaction Status Date / Time No Known Drug Allergies Allergy Verified 05/10/21 17:52 Home Medications Medication Instructions Recorded Confirmed Type nitroglycerin 0.4 mg sublingual 1 dose SUBLINGUAL UD PRN 05/29/18 05/10/21 History tablet omega 1-eby-tpt-fish oil 1,000 mg 1 cap PO QAM 05/29/18 05/10/21 History (120 mg-180 mg) capsule (Fish Oil) aspirin 81 mg tablet,delayed 81 mg PO QAM 07/09/19 05/10/21 History release lisinopril 40 mg tablet 40 mg PO QAM #30 tab 06/24/20 05/10/21 Rx atorvastatin 80 mg tablet 80 mg PO HS #90 tab 11/24/20 05/10/21 Rx psyllium 1 packet PO DAILY 05/10/21 05/10/21 History Past Med/Surg History Medical History (Updated 05/10/21 @ 19:08 by Mayte Rosen PA-C) Anxiety H/O - SITUATIONAL Arthritis of right shoulder region CAD (coronary artery disease) s/p ANA x 3, 2009. DSE 08/2017 negative for ischemia. 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) Osteoarthritis Severe aortic stenosis Surgical History History of adenoidectomy History of cardiac cath 2009 WITH ANA x 3 History of colonoscopy History of heart artery stent ADVISED TO BRING CARDS History of tonsillectomy History of tooth extraction History of total hip arthroplasty RIGHT History of total knee replacement BILATERAL History of total left hip arthroplasty Family History Other Heart disease Social History (Updated 05/10/21 @ 19:06 by Mayte Rosen PA-C) Smoking Status: Never smoker Second Hand Exposure: No; Hx Alcohol Use: Yes Alcohol type: beer, wine and hard liquor Alcohol Intake Frequency: 2-4 x/Month Hx Substance Use: No Preferred Language: Icelandic Communication Ability: Effective Furniture Inspector Required: No Beliefs That Will Affect Care: None Current Living Situation: Alone Feels Safe at Home: Yes Assistive Devices: Walker Review of Systems Review of Systems: At least ten systems reviewed and negative except as noted in the HPI. Physical Exam Physical Exam: Please see Dr. Valenzuela's addendum for physical exam. Results & Data Results & Data ([facility]) Vital Signs (Past 12 Hours) Vital Signs Temp Pulse Resp BP Pulse Ox 05/10/21 16:41 36.7 C 149 H 18 116/89 95 Laboratory Results Short CBC 05/10/21 Range/Units 17:03 WBC 6.45 (4.8-10.8) K/uL Hgb 14.6 (14.0-18.0) g/dL Hct 45.2 (42-52) % Plt Count 291 (130-400) K/uL BMP 05/10/21 17:03 Sodium 142 Potassium 5.1 Chloride 110 H Carbon Dioxide 24 BUN 25 H Creatinine 1.32 Glucose 117 H Calcium 8.8 Cardiac Enzymes 05/10/21 Range/Units 17:03 Troponin I 0.080 H* (0-0.045) ng/ml Liver Function 05/10/21 Range/Units 17:03 Total Bilirubin 1.5 H (0.2-1) mg/dl AST 62 H (15-37) U/L ALT 83 H (12-78) U/L Alkaline Phosphatase 110 (45-117) U/L Albumin 2.9 L (3.4-5.0) gm/dl Diagnostic Findings Chest X-Ray 05/10/21 16:45 XR chest 1V portable CLINICAL HISTORY: SOB. COMPARISON STUDY: 06/01/2018 TECHNIQUE: 1 view of the chest FINDINGS: Single frontal view of the chest demonstrates the heart size to be enlarged. There is diffuse interstitial and alveolar edema most characteristic of congestive heart failure. There is also evidence for left pleural effusion and left basilar atelectasis. No definite confluent alveolar opacities are seen. There is no evidence for vascular congestion. There is no acute osseous pathology. IMPRESSION: Diffuse interstitial and alveolar edema most characteristic of congestive heart failure. Small left pleural effusion and left basilar atelectasis also present. ACT 112: Negative or not required by law. Electronically signed by: Juan Fermin M.D. 05/10/2021 5:16 PM ECG Additional Comments: A fib with RVR Code Status & VTE Plan VTE Prophylaxis Plan VTE Prophylaxis will be ordered: Yes Supervising Physician Co-Signing Physician Notes And is a 75-year-old male with history of severe aortic stenosis, coronary ar nicolette disease and other medical problems presents with history of worsening exertional shortness of breath, weight gain, lower extremity edema and orthopnea. Patient [facility] with [facility] cardiology. Please review HPI for complete details of presentation. He was found to be in A. fib RVR while in ED. Blood work suggestive of elevated BNP, mild troponin elevation, LFT elevation. Chest x-ray showed diffuse interstitial and alveolar edema consistent with CHF. Physical Exam: Vitals signs as noted above General Appearance: Morbidly obese, no apparent distress Head: normocephalic, Atraumatic Eyes: normal inspection, EOMI Neck: supple, Trachea midline Respiratory/Chest: Decreased breath sounds, bilateral crackles, CTA, No accessory muscle use Cardiovascular: Irregularly irregular, tachycardia, +murmur Abdomen/GI:Soft, Non tender, Bowel sounds present, distended Extremities/Musculoskeletal:normal inspection, bilateral 3+ lower extremity edema Neurologic/Psych:AAOX3, grossly no focal neurological deficits Skin: normal color, warm A. fib RVR New diagnosis Acute CHF likely diastolic Severe aortic stenosis Elevated LFTs likely hepatic congestion Demand ischemia Continue Cardizem, heparin drip Cardiology consulted Check echo Monitor LFTs Also obtain ultrasound to rule out ascites I's and O's, daily weight, fluid restriction, low-salt diet Consider diuretics as needed I personally reviewed the record. Patient is interviewed and examined at bedside. Patient's care is coordinated with Hattie Schreiber PA-C. Please refer to the documentation above for details of patient's presentation and for discussion of other issues.
[2021-05-10 18:23] LABS: Thyroid Stimulating Hormone 5.08 uIu/ml (0.300-4.500)
[2021-05-10] MEDS: HEPARIN SODIUM/DEXTROSE 25,000 UNITS/500 ML BAG IV SCH (18:32)
[2021-05-10 18:36] LABS: T4 Free Thyroxine 1.4 ng/dl (0.8-1.6)
[2021-05-10] MEDS ORDERED: FUROSEMIDE INJ 20 MG/2 ML VIAL IV ONE (18:54)
[2021-05-10] MEDS ORDERED: FUROSEMIDE 40 MG/4 ML VIAL IV ONE (19:27)
--- NOTE | 2021-05-10 21:19 | Ultrasound Report ---
PROCEDURE: US abdomen ltd ascites CLINICAL HISTORY: volume overload. COMPARISON: None. TECHNIQUE: Limited sonography of the 4 quadrants was performed to evaluate for ascites. i FINDINGS: There is evidence for small amount ascites in all 4 quadrants. IMPRESSION: Positive for small amount of ascites in all 4 quadrants.. ACT 112: Negative or not required by law. Electronically signed by: Juan Fermin M.D. 05/10/2021 9:18 PM
[2021-05-10] MEDS ORDERED: POLYETHYLENE (MIRALAX) 17 GM PACK PO PRN (21:30)
[2021-05-10] MEDS ORDERED: ACETAMINOPHEN 325 MG TAB PO PRN (21:30)
[2021-05-10] MEDS ORDERED: ONDANSETRON INJ 2 MG/ML 2 ML VIAL IV PRN (21:30)
[2021-05-10] MEDS: ATORVASTATIN 40 MG TAB PO SCH (22:01)
[2021-05-11 00:40] LABS: Partial Thromboplastin Ratio 1.6; Partial Thromboplastin Time 42.1 Seconds (21.0-31.0)
[2021-05-11] MEDS: dilTIAZem HCL 125 MG in DEXTROSE 5% 100 ML IV SCH ×2 (04:35→14:50)
[2021-05-11 07:11] LABS: Hematocrit (blood only) 42.1 % (42-52); Hemoglobin 13.8 g/dL (14.0-18.0); Mean Corpuscular Hemoglobin 32.9 pg (25-34); Mean Corpuscular Hgb Conc 32.8 g/dL (32-36); Mean Corpuscular Volume 100.2 fL (80-100); Mean Platelet Volume 9.3 fL (7.4-10.4); Platelet Count 258 K/uL (130-400); RDW Coefficient of Variation 16.9 % (11.5-14.5); RDW Standard Deviation 62.7 fL (36.4-46.3); White Blood Count 8.29 K/uL (4.8-10.8)
[2021-05-11 07:22] LABS: Partial Thromboplastin Ratio 1.7; Partial Thromboplastin Time 44.2 Seconds (21.0-31.0)
[2021-05-11 07:42] LABS: Albumin Globulin Ratio 0.7 (0.9-2); Albumin Level 2.6 gm/dl (3.4-5.0); BUN Creatinine Ratio 22.6 (10-20); Bilirubin,Total 2.2 mg/dl (0.2-1); Calcium 8.6 mg/dl (8.5-10.1); Est GFR (African American) 70.5 ml/min; Est GFR (Non-African American) 60.8 ml/min; Globulin 3.9 gm/dl (2.5-4.0); Magnesium 1.8 mg/dl (1.8-2.4); Potassium 4.4 mmol/L (3.5-5.1); Total Protein 6.5 gm/dl (6.4-8.2); Troponin I 0.088 ng/ml (0-0.045)
--- NOTE | 2021-05-11 08:35 | XRay Report ---
XR chest 1V portable CLINICAL HISTORY: Hypoxia. COMPARISON STUDY: 05/10/2021 TECHNIQUE: 1 view of the chest FINDINGS: Single frontal view of the chest demonstrates the heart to again be enlarged. Compared to the previou s examination, there is worsening of interstitial and alveolar opacities bilaterally. All the finding s were initially felt to represent congestive heart failure, the presence of a viral pneumonitis martin ot be excluded. If indicated clinically, CT chest could be obtained for further evaluation. There is again evidence for left pleural effusion and probable right pleural effusion as well. Bibasi lar atelectasis is present. There is no acute osseous pathology. IMPRESSION: Interval worsening of interstitial and alveolar opacities bilaterally which could represe nt a viral type pneumonitis rather than congestive heart failure. If indicated clinically, follow-up CT could be obtained for further evaluation. ACT 112: Negative or not required by law. Electronically signed by: Juan Fermin M.D. 05/11/2021 8:33 AM
--- NOTE | 2021-05-11 09:08 | XCELERA ---
[id number]
[2021-05-11] MEDS: lisinopril 40 MG TAB PO SCH (10:38)
[2021-05-11] MEDS: ASPIRIN 81 MG ECTAB PO SCH (12:04)
[2021-05-11] MEDS: PSYLLIUM 58.6% POWDER PACKET PO SCH (12:04)
[2021-05-11] MEDS: dexAMETHasone 6 MG in SYRINGE 0 ML IV SCH (14:04)
[2021-05-11] MEDS: HEPARIN SODIUM/DEXTROSE 25,000 UNITS/500 ML BAG IV SCH (14:50)
[2021-05-11 15:41] LABS: Partial Thromboplastin Ratio 1.9
[2021-05-11 15:46] LABS: Partial Thromboplastin Time 50.7 Seconds (21.0-31.0)
[2021-05-11] MEDS ORDERED: FUROSEMIDE INJ 20 MG/2 ML VIAL IV ONE (15:48)
--- NOTE | 2021-05-11 15:57 | Hospitalist Progress Note ---
Date of Service May 11, 2021 Assessment & Plan (1) Acute decompensated heart failure: (2) Severe aortic stenosis: Plan: This is a 75yo M with a PMH of severe aortic stenosis, CAD, hypertension, HLD and other medical problems listed below who presents with worsening exertional dyspnea and weight gain x 2 weeks and was found to have new onset A fib with RVR and decompensated heart failure. Acute systolic/diastolic CHF Presents with exertional dyspnea, orthopnea, PND and 20-25lb weight gain in past 2 weeks -CXR with diffuse interstitial and alveolar edema most characteristic of congestive heart failure. Small left pleural effusion and left basilar ate lectasis also present -Follows with Dr. Chun, stable severe aortic stenosis present on last echo in August 2020. Repeat echo ordered Is not on diuretics at home -ECHO: EF 45%, global hypokinesis, moderate to severe concentric LVH. Mildly dilated right ventricle with normal systolic function. Biatrial dilatation. Severe aortic stenosis with trace regurgitation. Moderate mitral regurgitation. Mild pulmonary hypertension. -Monitor I's and O's, daily weight, fluid restriction, low-salt diet Cardiology consult Given IV Lasix Continue supplemental oxygen as needed Further management as per cardiology (3) Atrial fibrillation with rapid ventricular response: Plan: New onset A fib with RVR Heart rate is controlled Continue Cardizem, heparin drip Cardiology consulted Replace electrolytes as needed COVID 19 Infection States having respiratory symptoms for about 2 weeks H/O CVOID in the past and was vaccinated as per patient --CXR:Interval worsening of interstitial and alveolar opacities bilaterally which could represent a viral type pneumonitis rather than congestive heart failure. If indicated clinically, follow-up CT could be obtained for further evaluation. CRP 1.3 Procalcitonin 0.12 Started on IV dexamethasone Continue supplemental oxygen as needed Consider pulmonary evaluation if needed (4) Elevated troponin: Plan: Initial troponin 0.080, likely demand ischemia in setting of volume overload, Denies Chest pain (5) CAD (coronary artery disease): Plan: Continue aspirin, statin (6) Hypertension: Plan: Continue lisinopril (7) HLD (hyperlipidemia): Plan: Continue statin DVT Pp: IV heparin Code status: Conditional - YES to CPR/shocks, NO to intubation Admission and Anticipated Discharge Date Admission Date: May 10, 2021 Subjective Patient is seen and examined at bedside Subjectively feels less dyspneic today Denies any chest pain, or dizziness, nausea, abdominal pain Chest x-ray today showed findings consistent of possible viral pneumonitis Covid screen was positive Review of Systems Review of Systems: All systems reviewed & are unremarkable except as noted in Subjective Physical Exam Physical Exam: Physical Exam: Vitals signs as noted above General Appearance: Morbidly obese, no apparent distress Head: normocephalic, Atraumatic Eyes: normal inspection, EOMI Neck: supple, Trachea midline Respiratory/Chest: Decreased breath sounds, bilateral crackles, CTA, No accessory muscle use Cardiovascular: Irregularly irregular, tachycardia, +murmur Abdomen/GI:Soft, Non tender, Bowel sounds present, distended Extremities/Musculoskeletal:normal inspection, bilateral 3+ lower extremity edema Neurologic/Psych:AAOX3, grossly no focal neurological deficits Results & Data Results & Data ([facility]) Vital Signs (Past 12 Hours) Vital Signs Temp Pulse Resp BP Pulse Ox 05/11/21 13:12 36.6 C 05/11/21 12:42 97 H 20 114/83 96 05/11/21 11:02 36.3 C L 89 21 124/80 94 05/11/21 08:05 36.5 C 101 H 18 140/82 91 Laboratory Results Short CBC 05/10/21 05/11/21 Range/Units 17:03 06:56 WBC 6.45 8.29 (4.8-10.8) K/uL Hgb 14.6 13.8 L (14.0-18.0) g/dL Hct 45.2 42.1 (42-52) % Plt Count 291 258 (130-400) K/uL BMP 05/10/21 05/11/21 17:03 06:56 Sodium 142 143 Potassium 5.1 4.4 Chloride 110 H 111 H Carbon Dioxide 24 22 BUN 25 H 26 H Creatinine 1.32 1.16 Glucose 117 H 100 H Calcium 8.8 8.6 Cardiac Enzymes 05/10/21 05/10/21 05/11/21 Range/Units 17:03 22:31 06:56 Troponin I 0.080 H* 0.056 H* 0.088 H* (0-0.045) ng/ml Liver Function 05/10/21 05/11/21 Range/Units 17:03 06:56 Total Bilirubin 1.5 H 2.2 H (0.2-1) mg/dl AST 62 H 57 H (15-37) U/L ALT 83 H 73 (12-78) U/L Alkaline Phosphatase 110 104 (45-117) U/L Albumin 2.9 L 2.6 L (3.4-5.0) gm/dl
--- NOTE | 2021-05-11 17:26 | Cardiology Consultation ---
Date of Consultation May 11, 2021 Assessment & Plan (1) Acute combined systolic and diastolic heart failure: (2) Atrial fibrillation with rapid ventricular response: (3) Severe aortic stenosis: (4) Mitral regurgitation: (5) CAD (coronary artery disease): (6) Elevated troponin: (7) Cardiomyopathy: (8) Hypertension: (9) HLD (hyperlipidemia): ASSESSMENT/PLAN: 1. Acute combined systolic/diastolic CHF (HF with mid range EF): He appears hypervolemic. Likely due to AFib with RVR in the setting of severe aortic stenosis. Recommend Lasix 40 mg IV b.i.d.. Low-sodium diet. Strict I&Os. Daily weights. Presentation consistent with heart failure. 2. Atrial fibrillation with rapid ventricular response: Discussed the diagnosis with him. Heart rate better controlled on diltiazem drip. Recommend oral medication for rate control to replace diltiazem drip. Given CAD, will first attempt metoprolol 25 mg p.o. q.6 hours and diltiazem drip can be weaned. If metoprolol does not adequately control the heart rate, will attempt oral diltiazem. Recommend rate control strategy for now. Agree with anticoagulation for stroke risk reduction, which was also discussed with him. 3. Severe aortic stenosis: Likely contributing to CHF, especially in the setting of AFib with RVR. Would consider aortic valve replacement at some point. Recommend optimizing volume status, management of his AFib, and can pursue this in the future, likely as an outpatient. 4. Elevated troponin: He did not present with acute coronary syndrome. Likely demand ischemia due to AFib with RVR in the setting of severe and underlying CAD. 5. CAD s/p dominant Circumflex and PDA PCI: No angina. Continue aspirin 81 mg daily. Continue high-intensity statin therapy. Initiating beta-lesly as above. 6. Mitral regurgitation: Non severe. Likely appears more significant in the setting of severe and hypervolemia. 7. Cardiomyopathy: Mildly reduced LV systolic function on today's echo, but had previously had normal LV systolic function. This could be due to prolonged tachycardia in the setting of AFib. Cannot exclude aortic stenosis playing a role. After beta-lesly has been titrated, would recommend metoprolol succinate in place of tartrate. Can continue KAMRYN-inhibitor which he has tolerated chronically. 8. Hypertension: Blood pressure acceptable. If he becomes hypotensive with beta-lesly initiation, would first discontinue diltiazem drip. If necessary, could reduce lisinopril. 9. Dyslipidemia: Continue high-intensity statin therapy. 10. Disposition: Cardiology will continue to follow. Patient care communicated with primary hospitalist, Dr. Valenzuela. Highly complex medical issues. Thank you for allowing me to participate in the care of your patient. Please call for any other questions or concerns. Sincerely, Dejon Cat M.D. History of Present Illness Reason for Consultation: Severe aortic stenosis and new onset AFib with RVR Requesting Physician: Mayte Rosen PA-C Attending Physician: Dilan Valenzuela MD History of Present Illness Mr. Baum is a pleasant 75-year-old gentleman with a history significant for severe aortic stenosis, CAD s/p PCI (Circumflex and Cx PDA), and hypertension. His primary dimethylaniline sulfator operator is Dr. Chun. He was admitted on 05/10/2021 after presenting with shortness of breath, edema, and 20-25 lb weight gain. He was found to be in CHF and AFib with RVR. His initial COVID-19 test was negative, however he had another test which resulted positive. He has not had any fevers or chills and reports that he had COVID-19 infection in October of 2020. While here, he has received diltiazem drip which has significantly improved his heart rate. He also has received Lasix 20 mg IV x2, once on 05/10/2021 and once this afternoon. He reports that for the past 3 weeks he has been noting dyspnea with exertion and also orthopnea. He has gained nearly 25 lb. He did not notice significant swelling but his family noted that his legs were more swollen. He denies chest discomfort. He denies syncope, near-syncope, or palpitations. He states that he has a very active person but found it more difficult to exert himself over the past 2-3 weeks. He has not required diuretic therapy at home and had not been diagnosed with heart failure. He has been followed as an outpatient with Cardiology for severe aortic stenosis. Breathing has significantly improved but is not back to baseline. He states that his lower extremity edema was firm but has significantly improved but not nearly back to baseline. He denies melena, hematochezia, hematuria, or other bleeding. He is tolerating heparin drip which was started for stroke risk reduction. He has had the following studies/procedures: 1. Cardiac catheterization 10/13/2009 [facility]: Mid LAD 30%. Proximal circumflex 50%. Mid circumflex 60%. Circumflex PDA 70%. Left dominant system. Underwent PCI x3 with [employer] endeavor ANA of 3.5 x 24 mm in proximal circumflex, 3.5 x 18 mm in mid circumflex, and 2.5 x 14 mm PDA. 2. Echo 05/11/2021: Normal LV size. EF 45%. Global hypokinesis. Moderate to severeLVH. Mildly dilated RV with normal systolic function. Biatrial dilation. Severe with trace AI. Moderate MR. RVSP 43. AFib. Review of systems: As above. Review systems otherwise negative/unremarkable. Social history: Denies smoking. Rare alcohol. Lives alone. . Four children. Family history: Noncontributory. Allergies Allergy/AdvReac Type Severity Reaction Status Date / Time No Known Drug Allergies Allergy Verified 05/10/21 17:52 Home Medications Medication Instructions Recorded Confirmed Type nitroglycerin 0.4 mg sublingual 1 dose SUBLINGUAL UD PRN 05/29/18 05/10/21 History tablet omega [id number]-fish oil 1,000 mg 1 cap PO QAM 05/29/18 05/10/21 History (120 mg-180 mg) capsule (Fish Oil) aspirin 81 mg tablet,delayed 81 mg PO QAM 07/09/19 05/10/21 History release atorvastatin 80 mg tablet 80 mg PO HS #90 tab 11/24/20 05/10/21 Rx psyllium 1 packet PO DAILY 05/10/21 05/10/21 History lisinopril 40 mg tablet 40 mg PO QAM #30 tab 05/11/21 Rx Patient History Medical History Anxiety H/O - SITUATIONAL Arthritis of right shoulder region CAD (coronary artery disease) s/p ANA x 2009. DSE 08/2017 negative for ischemia. 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) Osteoarthritis Severe aortic stenosis Surgical History History of adenoidectomy History of cardiac cath 2010 WITH ANA x 3 History of colonoscopy History of heart artery stent ADVISED TO BRING CARDS History of tonsillectomy History of tooth extraction History of total hip arthroplasty RIGHT History of total knee replacement BILATERAL History of total left hip arthroplasty Family History Other Heart disease Social History (Updated 05/10/21 @ 19:06 by Mayte oRsen PA-C) Smoking Status: Never smoker Second Hand Exposure: No; Do You Dip or Chew Tobacco: No; Tobacco Cessation Education Requested by Patient: No Hx Alcohol Use: Yes Alcohol type: beer Alcohol Intake Frequency: 2-4 x/Month Hx Substance Use: No Preferred Language: Martiniquais Communication Ability: Effective Concrete Tester Required: No Beliefs That Will Affect Care: None marital status: / Current Living Situation: Alone How many Children do You have: 4 Other Information That Helps Us Care for You: No Feels Safe at Home: Yes Safety Concerns: Feels Safe At This Time Assistive Devices: Oxygen - Continuous Physical Exam Physical Exam: Gen.: No acute distress. Alert and oriented. HEENT: Anicteric sclera. Neck: Mild JVD. Bilateral carotid bruits versus radiation of cardiac murmur. Normal carotid upstrokes bilaterally. Cardiac: PMI was nonpalpable. No ventricular heave. Irregularly irregular with normal rate. Normal S1-S2. 2/6 systolic ejection murmur. No rubs or gallops. Pulmonary: Decreased breath sounds bilaterally. Abdomen: Soft, nontender, nondistended, with normoactive bowel sounds. No bruits noted. Extremities: 2+ radial pulses bilaterally. 2+ posterior tibialis pulses bilaterally. 3+ bilateral lower extremity edema to the knees. No cyanosis. Psychiatric: Affect appears appropriate. Results & Data ([facility]) Vital Signs (Past 12 Hours) Vital Signs Temp Pulse Resp BP Pulse Ox 05/11/21 16:20 36.6 C 91 H 20 105/74 95 05/11/21 13:12 36.6 C 05/11/21 12:42 97 H 20 114/83 96 05/11/21 11:02 36.3 C L 89 21 124/80 94 05/11/21 08:05 36.5 C 101 H 18 140/82 91 Intake & Output 05/09/21 05/10/21 05/11/21 05/12/21 06:59 06:59 06:59 06:59 Intake Total 542.917 / 542.917 416.367 / 416.367 Output Total 400 / 400 550 / 550 Balance 142.917 / 142.917 -133.633 / -133.633 Weight 263 lb 3.711 oz Laboratory Results Laboratory Results - last 24 hr 05/10/21 05/10/21 05/10/21 17:03 17:03 18:51 WBC RBC Hgb Hct MCV MCH MCHC RDW Std Deviation RDW Coeff of Meghan Plt Count MPV PT 12.6 H INR 1.3 H APTT 26.4 PTT Ratio 1.0 Sodium 142 Potassium 5.1 Chloride 110 H Carbon Dioxide 24 Anion Gap 8.0 BUN 25 H Creatinine 1.32 Est Cr Clr Drug Dosing 60.9 Est GFR ( Amer) 60.3 Est GFR (Non-Af Amer) 52.0 BUN/Creatinine Ratio 18.6 Glucose 117 H Calcium 8.8 Magnesium 1.9 Total Bilirubin 1.5 H AST 62 H ALT 83 H Alkaline Phosphatase 110 Troponin I 0.080 H* C-Reactive Protein NT-Pro-B Natriuret Pep 3679 H Total Protein 6.8 Albumin 2.9 L Globulin 3.9 Albumin/Globulin Ratio 0.7 L Procalcitonin TSH 5.080 H Free T4 1.40 Specimen Hemolysis SARS-CoV-2 (PCR) NEGATIVE 05/10/21 05/11/21 05/11/21 22:31 00:11 06:56 WBC 8.29 RBC 4.20 L Hgb 13.8 L Hct 42.1 MCV 100.2 H MCH 32.9 MCHC 32.8 RDW Std Deviation 62.7 H RDW Coeff of Meghan 16.9 H Plt Count 258 MPV 9.3 PT INR APTT 42.1 H PTT Ratio 1.6 Sodium Potassium Chloride Carbon Dioxide Anion Gap BUN Creatinine Est Cr Clr Drug Dosing Est GFR ( Amer) Est GFR (Non-Af Amer) BUN/Creatinine Ratio Glucose Calcium Magnesium Total Bilirubin AST ALT Alkaline Phosphatase Troponin I 0.056 H* C-Reactive Protein NT-Pro-B Natriuret Pep Total Protein Albumin Globulin Albumin/Globulin Ratio Procalcitonin TSH Free T4 Specimen Hemolysis SARS-CoV-2 (PCR) 05/11/21 05/11/21 05/11/21 06:56 06:56 06:56 WBC RBC Hgb Hct MCV MCH MCHC RDW Std Deviation RDW Coeff of Meghan Plt Count MPV PT INR APTT 44.2 H PTT Ratio 1.7 Sodium 143 Potassium 4.4 Chloride 111 H Carbon Dioxide 22 Anion Gap 9.0 BUN 26 H Creatinine 1.16 Est Cr Clr Drug Dosing 68.0 Est GFR ( Amer) 70.5 Est GFR (Non-Af Amer) 60.8 BUN/Creatinine Ratio 22.6 H Glucose 100 H Calcium 8.6 Magnesium 1.8 Total Bilirubin 2.2 H AST 57 H ALT 73 Alkaline Phosphatase 104 Troponin I 0.088 H* C-Reactive Protein 1.30 H NT-Pro-B Natriuret Pep Total Protein 6.5 Albumin 2.6 L Globulin 3.9 Albumin/Globulin Ratio 0.7 L Procalcitonin TSH Free T4 Specimen Hemolysis SARS-CoV-2 (PCR) 05/11/21 05/11/21 05/11/21 09:40 10:44 14:58 WBC RBC Hgb Hct MCV MCH MCHC RDW Std Deviation RDW Coeff of Meghan Plt Count MPV PT INR APTT 50.7 H* PTT Ratio 1.9 Sodium Potassium Chloride Carbon Dioxide Anion Gap BUN Creatinine Est Cr Clr Drug Dosing Est GFR ( Amer) Est GFR (Non-Af Amer) BUN/Creatinine Ratio Glucose Calcium Magnesium Total Bilirubin AST ALT Alkaline Phosphatase Troponin I C-Reactive Protein NT-Pro-B Natriuret Pep Total Protein Albumin Globulin Albumin/Globulin Ratio Procalcitonin 0.12 TSH Free T4 Specimen Hemolysis SARS-CoV-2 (PCR) POSITIVE A* Diagnostic Findings Telemetry personally reviewed: Atrial fibrillation. Heart rate has improved and is now adequately controlled. ECG personally reviewed: ECG 05/11/2021: AFib 85 beats per minute. RBBB. ECG 05/10/2021 at 4:57 p.m.: AFib with RVR 152 beats per minute. RBBB. Echo report reviewed as noted above in HPI. Chest x-ray 05/11/2021: Interstitial alveolar opacities bilaterally. Left pleural effusion. Image personally reviewed. Medications Administered Current Inpatient Medications Acetaminophen (Acetaminophen 325 Mg Tab) 650 mg PO Q4H PRN PRN Reason: Pain or Fever Stop: 06/09/21 21:29 Aspirin (Aspirin 81 Mg Ectab) 81 mg PO QAM [facility] Stop: 06/10/21 08:59 Last Admin: 05/11/21 12:04 Dose: 81 mg Documented by: Atorvastatin Calcium (Atorvastatin 40 Mg Tab) 80 mg PO HS [facility] Stop: 06/09/21 21:29 Last Admin: 05/10/21 22:01 Dose: 80 mg Documented by: Diltiazem HCl 125 mg/ Dextrose 125 mls @ 10 mls/hr IV .[id number] [facility]; Protocol Stop: 06/09/21 17:44 Last Admin: 05/11/21 14:50 Dose: 10 mg/hr, 10 mls/hr Documented by: Heparin Sodium/Dextrose (Heparin Sodium/Dextrose) 25,000 units in 500 mls @ 24 mls/hr IV .[id number] [facility]; Protocol Stop: 06/09/21 17:59 Last Admin: 05/11/21 14:50 Dose: 1,200 units/hr, 24 mls/hr Documented by: Dexamethasone 6 mg/ Syringe 1.5 mls @ 1 mls/min IV DAILY [facility] Stop: 05/21/21 11:59 Last Admin: 05/11/21 14:04 Dose: 1 mls/min Documented by: Lisinopril (Lisinopril 40 Mg Tab) 40 mg PO QAM [facility] Stop: 06/10/21 08:59 Last Admin: 05/11/21 10:38 Dose: 40 mg Documented by: Ondansetron HCl (Ondansetron Inj 2 Mg/Ml 2 Ml Vial) 4 mg IV Q6H PRN PRN Reason: Nausea Stop: 06/09/21 21:29 Polyethylene Glycol (Polyethylene (Miralax) 17 Gm Pack) 17 gm PO DAILY PRN PRN Reason: Constipation Stop: 06/09/21 21:29 Psyllium Hydrophilic Mucilloid (Psyllium 58.6% Powder Packet) 1 pkt PO DAILY [facility] Stop: 06/10/21 08:59 Last Admin: 05/11/21 12:04 Dose: Not Given Documented by: PG Care Time/CCT Total # of Minutes Spent Total Time Spent with Patient: Total time spent is greater than 50% in coordination of care (as documented) at patient's floor/unit and/or counseling patient: Coding Level of Care Code 53165 Initial Inpt Care Lvl 3 Diagnoses Atrial fibrillation with rapid ventricular response I48.91 Severe aortic stenosis I35.0 Mitral regurgitation I34.0 CAD (coronary artery disease) I25.10 Elevated troponin R77.8 Hypertension I10 HLD (hyperlipidemia) E78.5 Cardiomyopathy I42.9 Acute combined systolic and diastolic heart failure I50.41
[2021-05-11] MEDS: ATORVASTATIN 40 MG TAB PO SCH (20:23)
[2021-05-11] MEDS: METOPROLOL TARTRATE 25 MG TAB PO SCH (20:24)
[2021-05-11] MEDS: FUROSEMIDE 40 MG/4 ML VIAL IV SCH (20:34)
[2021-05-12] MEDS: METOPROLOL TARTRATE 25 MG TAB PO SCH ×5 (00:20→23:45)
--- NOTE | 2021-05-12 06:43 | Electrocardiogram Report ---
Test Reason : Blood Pressure : / mmHG Vent. Rate : 152 BPM Atrial Rate : 153 BPM P-R Int : 000 ms QRS Dur : 150 ms QT Int : 318 ms P-R-T Axes : 000 130 -14 degrees QTc Int : 505 ms Atrial fibrillation with rapid ventricular response Right bundle branch block Abnormal ECG When compared with ECG of 22-JUN-2018 09:01, Atrial fibrillation has replaced Sinus rhythm Vent. rate has increased BY 69 BPM QRS axis Shifted right Confirmed by José Miguel Cat ([id number]) on 05/12/2021 6:43:06 AM Referred By: REFERRED SELF Confirmed By:José Miguel Cat
--- NOTE | 2021-05-12 07:00 | Electrocardiogram Report ---
Test Reason : Blood Pressure : / mmHG Vent. Rate : 085 BPM Atrial Rate : 108 BPM P-R Int : 000 ms QRS Dur : 156 ms QT Int : 436 ms P-R-T Axes : 000 109 053 degrees QTc Int : 518 ms Atrial fibrillation Right bundle branch block Abnormal ECG When compared with ECG of 10-MAY-2021 16:57, Vent. rate has decreased BY 67 BPM T wave inversion no longer evident in Inferior leads T wave inversion more evident in Anterior leads Confirmed by José Miguel Cat ([id number]) on 05/12/2021 7:00:00 AM Referred By: REFERRED SELF Confirmed By:José Miguel Cat
[2021-05-12 07:06] LABS: Hematocrit (blood only) 42.5 % (42-52); Hemoglobin 13.6 g/dL (14.0-18.0); Mean Corpuscular Hemoglobin 32.6 pg (25-34); Mean Corpuscular Volume 101.9 fL (80-100); Mean Platelet Volume 9.4 fL (7.4-10.4); Platelet Count 274 K/uL (130-400); RDW Coefficient of Variation 16.7 % (11.5-14.5); RDW Standard Deviation 62.4 fL (36.4-46.3); Red Blood Count 4.17 M/uL (4.7-6.1); White Blood Count 6.68 K/uL (4.8-10.8)
[2021-05-12 07:53] LABS: Albumin Level 2.8 gm/dl (3.4-5.0); BUN Creatinine Ratio 24.5 (10-20); Creatinine Clr Calc Pharmacy 66.5 ml/min; Est GFR (Non-African American) 62.1 ml/min; Magnesium 1.8 mg/dl (1.8-2.4); Potassium 4.4 mmol/L (3.5-5.1)
[2021-05-12 07:58] LABS: Albumin Globulin Ratio 0.7 (0.9-2); Bilirubin,Total 1.7 mg/dl (0.2-1); Total Protein 6.8 gm/dl (6.4-8.2)
[2021-05-12 08:06] LABS: Partial Thromboplastin Ratio 2.5
[2021-05-12] MEDS: ASPIRIN 81 MG ECTAB PO SCH (09:44)
[2021-05-12] MEDS: lisinopril 40 MG TAB PO SCH (09:44)
[2021-05-12] MEDS: HEPARIN SODIUM/DEXTROSE 25,000 UNITS/500 ML BAG IV SCH (09:45)
[2021-05-12] MEDS: dexAMETHasone 6 MG in SYRINGE 0 ML IV SCH (09:45)
[2021-05-12] MEDS: FUROSEMIDE 40 MG/4 ML VIAL IV SCH ×2 (09:53→20:10)
--- NOTE | 2021-05-12 10:11 | Cardiology Progress Note ---
Date of Service May 12, 2021 Assessment & Plan (1) Acute combined systolic and diastolic heart failure: (2) Atrial fibrillation with rapid ventricular response: (3) Severe aortic stenosis: (4) Mitral regurgitation: (5) CAD (coronary artery disease): (6) Elevated troponin: (7) Cardiomyopathy: (8) Hypertension: (9) HLD (hyperlipidemia): Plan: ASSESSMENT/PLAN: 1. Acute combined systolic/diastolic CHF (HF with mid range EF): He appears hypervolemic, but edema has improved. Likely due to AFib with RVR in the setting of severe aortic stenosis. Continue Lasix 40 mg IV b.i.d.. Low-sodium diet. Strict I&Os. Daily weights. Presentation consistent with heart failure. 2. Atrial fibrillation with rapid ventricular response: Heart rate reasonably controlled at rest but likely will become more tachycardic with exertion. Tolerating metoprolol 25 mg q.6 hours and diltiazem drip has been able to be discontinued. Continue current dosing for now as he has not yet been on the medication for 24 hours. If throughout the hospital stay, heart rate is not adequately controlled with ambulation, would further titrate rate-controlling medication. Continue rate control strategy. Consider Eliquis on discharge, for stroke risk reduction. 3. Severe aortic stenosis: Likely contributing to CHF, especially in the setting of AFib with RVR. Would consider aortic valve replacement at some point. Recommend optimizing volume status, management of his AFib, and can pursue this in the future, likely as an outpatient. 4. Elevated troponin: He did not present with acute coronary syndrome. Likely demand ischemia due to AFib with RVR in the setting of severe and underlying CAD. 5. CAD s/p dominant Circumflex and PDA PCI: No angina. Continue aspirin 81 mg daily. Continue high-intensity statin therapy. Continue beta-lesly, which was initiated this hospital stay. 6. Mitral regurgitation: Non severe. Likely appears more significant in the setting of severe and hypervolemia. 7. Cardiomyopathy: Mildly reduced LV systolic function on today's echo, but had previously had normal LV systolic function. This could be due to prolonged tachycardia in the setting of AFib. Cannot exclude aortic stenosis playing a role. After beta-lesly has been titrated, would recommend metoprolol succinate in place of tartrate. Can continue KAMRYN-inhibitor which he has tolerated chronically. 8. Hypertension: Blood pressure acceptable. If he becomes hypotensive with beta-lesly initiation, would reduce lisinopril as he requires rate-controlling medication at this point. 9. Dyslipidemia: Continue high-intensity statin therapy. 10. Disposition: I will be away from the hospital after today. Please call the on-call core placer, Dr. Roy for any questions or concerns. On discharge, he should follow-up with Dr. Chun, his primary core placer. Also recommend heart failure program on discharge. Admission and Anticipated Discharge Date Admission Date: May 10, 2021 Subjective Feels well today. Denies shortness of breath while sitting in bed or standing. He has not ambulated. He denies chest pain, palpitations, syncope, near- syncope, or bleeding. He admits that his edema continues to improve. Lasix was increased to 40 mg twice daily last night and he states that he is urinating much more now. Review of systems: As above. Physical Exam Physical Exam: Gen.: No acute distress. Alert and oriented. HEENT: Anicteric sclera. Neck: Mild JVD. Hepatojugular reflux. Cardiac: Irregularly irregular with normal rate. Normal S1-S2. 1/6 systolic ejection murmur. No rubs or gallops. Pulmonary: Decreased breath sounds bilaterally. Faint rales at bases. Abdomen: Soft, nontender, nondistended, with normoactive bowel sounds. No bruits noted. Extremities: 2+ radial pulses bilaterally. 2+ posterior tibialis pulses bilaterally. 2+ bilateral lower extremity edema. No cyanosis. Psychiatric: Affect appears appropriate. Results & Data ([facility]) Vital Signs (Past 12 Hours) Vital Signs Temp Pulse Pulse Resp BP Pulse Ox 05/12/21 07:03 36.2 C L 83 20 105/76 92 05/12/21 03:22 36.5 C 78 18 106/72 91 05/11/21 23:00 78 05/11/21 22:57 37.0 C 73 18 105/71 95 Intake & Output 05/10/21 05/11/21 05/12/21 05/13/21 06:59 06:59 06:59 06:59 Intake Total 542.917 / 542.917 615.133 / 615.133 352.4 / 352.4 Output Total 400 / 400 2275 / 2275 Balance 142.917 / 142.917 -1659.867 / -1659.867 352.4 / 352.4 Weight 263 lb 3.711 oz 243 lb 9.773 oz Laboratory Results Laboratory Results - last 24 hr 05/11/21 05/11/21 05/11/21 06:56 09:40 10:44 WBC RBC Hgb Hct MCV MCH MCHC RDW Std Deviation RDW Coeff of Meghan Plt Count MPV APTT PTT Ratio Sodium Potassium Chloride Carbon Dioxide Anion Gap BUN Creatinine Est Cr Clr Drug Dosing Est GFR ( Amer) Est GFR (Non-Af Amer) BUN/Creatinine Ratio Glucose Calcium Magnesium Total Bilirubin AST ALT Alkaline Phosphatase C-Reactive Protein 1.30 H Total Protein Albumin Globulin Albumin/Globulin Ratio Procalcitonin 0.12 SARS-CoV-2 (PCR) POSITIVE A* 05/11/21 05/12/21 05/12/21 14:58 06:37 06:37 WBC 6.68 RBC 4.17 L Hgb 13.6 L Hct 42.5 MCV 101.9 H MCH 32.6 MCHC 32.0 RDW Std Deviation 62.4 H RDW Coeff of Meghan 16.7 H Plt Count 274 MPV 9.4 APTT 50.7 H* PTT Ratio 1.9 Sodium 139 Potassium 4.4 Chloride 106 Carbon Dioxide 28 Anion Gap 5.0 BUN 28 H Creatinine 1.14 Est Cr Clr Drug Dosing 66.5 Est GFR ( Amer) 72.0 Est GFR (Non-Af Amer) 62.1 BUN/Creatinine Ratio 24.5 H Glucose 126 H Calcium 9.0 Magnesium 1.8 Total Bilirubin 1.7 H AST 50 H ALT 69 Alkaline Phosphatase 107 C-Reactive Protein Total Protein 6.8 Albumin 2.8 L Globulin 4.0 Albumin/Globulin Ratio 0.7 L Procalcitonin SARS-CoV-2 (PCR) 05/12/21 06:37 WBC RBC Hgb Hct MCV MCH MCHC RDW Std Deviation RDW Coeff of Meghan Plt Count MPV APTT 67.0 H* PTT Ratio 2.5 Sodium Potassium Chloride Carbon Dioxide Anion Gap BUN Creatinine Est Cr Clr Drug Dosing Est GFR ( Amer) Est GFR (Non-Af Amer) BUN/Creatinine Ratio Glucose Calcium Magnesium Total Bilirubin AST ALT Alkaline Phosphatase C-Reactive Protein Total Protein Albumin Globulin Albumin/Globulin Ratio Procalcitonin SARS-CoV-2 (PCR) Diagnostic Findings Telemetry personally reviewed: Rhythm remains atrial fibrillation but reasonably rate controlled. Medications Administered Current Inpatient Medications Acetaminophen (Acetaminophen 325 Mg Tab) 650 mg PO Q4H PRN PRN Reason: Pain or Fever Stop: 06/09/21 21:29 Aspirin (Aspirin 81 Mg Ectab) 81 mg PO QAM [facility] Stop: 06/10/21 08:59 Last Admin: 05/12/21 09:44 Dose: 81 mg Documented by: Atorvastatin Calcium (Atorvastatin 40 Mg Tab) 80 mg PO HS [facility] Stop: 06/09/21 21:29 Last Admin: 05/11/21 20:23 Dose: 80 mg Documented by: Furosemide (Furosemide 40 Mg/4 Ml Vial) 40 mg IV BID [facility] Stop: 06/10/21 20:59 Last Admin: 05/12/21 09:53 Dose: 40 mg Documented by: Diltiazem HCl 125 mg/ Dextrose 125 mls @ 0 mls/hr IV .Q0M [facility]; Protocol Stop: 06/09/21 17:44 Last Titration: 05/12/21 02:15 Dose: 0 mg/hr, 0 mls/hr Documented by: Heparin Sodium/Dextrose (Heparin Sodium/Dextrose) 25,000 units in 500 mls @ 24 mls/hr IV .[id number] [facility]; Protocol Stop: 06/09/21 17:59 Last Admin: 05/12/21 09:45 Dose: 1,200 units/hr, 24 mls/hr Documented by: Dexamethasone 6 mg/ Syringe 1.5 mls @ 1 mls/min IV DAILY [facility] Stop: 05/21/21 11:59 Last Admin: 05/12/21 09:45 Dose: 1 mls/min Documented by: Lisinopril (Lisinopril 40 Mg Tab) 40 mg PO QAM [facility] Stop: 06/10/21 08:59 Last Admin: 05/12/21 09:44 Dose: 40 mg Documented by: Metoprolol Tartrate (Metoprolol Tartrate 25 Mg Tab) 25 mg PO Q6H [facility] Stop: 06/10/21 17:29 Last Admin: 05/12/21 06:17 Dose: 25 mg Documented by: Ondansetron HCl (Ondansetron Inj 2 Mg/Ml 2 Ml Vial) 4 mg IV Q6H PRN PRN Reason: Nausea Stop: 06/09/21 21:29 Polyethylene Glycol (Polyethylene (Miralax) 17 Gm Pack) 17 gm PO DAILY PRN PRN Reason: Constipation Stop: 06/09/21 21:29 Psyllium Hydrophilic Mucilloid (Psyllium 58.6% Powder Packet) 1 pkt PO DAILY [facility] Stop: 06/10/21 08:59 Last Admin: 05/11/21 12:04 Dose: Not Given Documented by: PG Care Time/CCT Total # of Minutes Spent Total Time Spent with Patient: Total time spent is greater than 50% in coordination of care (as documented) at patient's floor/unit and/or counseling patient: Coding Level of Care Code 50433 Subseq Hosp Care Lvl 3 Diagnoses Acute combined systolic and diastolic heart failure I50.41 Atrial fibrillation with rapid ventricular response I48.91 Severe aortic stenosis I35.0 Mitral regurgitation I34.0 CAD (coronary artery disease) I25.10 Elevated troponin R77.8 Cardiomyopathy I42.9 Hypertension I10 HLD (hyperlipidemia) E78.5
[2021-05-12] MEDS: PSYLLIUM 58.6% POWDER PACKET PO SCH (10:58)
--- NOTE | 2021-05-12 13:36 | Hospitalist Progress Note ---
Date of Service May 12, 2021 Assessment & Plan (1) Acute decompensated heart failure: (2) Severe aortic stenosis: Plan: Acute systolic/diastolic CHF Presented with exertional dyspnea, orthopnea, PND and 20-25lb weight gain in past 2 weeks -CXR with diffuse interstitial and alveolar edema most characteristic of congestive heart failure. Small left pleural effusion and left basilar atelectasis also present -Follows with Dr. Chun, stable severe aortic stenosis present on last echo in August 2020. Repeat echo ordered Was not on diuretics at home -ECHO: EF 45%, global hypokinesis, moderate to severe concentric LVH. Mildly dilated right ventricle with normal systolic function. Biatrial dilatation. Severe aortic stenosis with trace regurgitation. Moderate mitral regurgitation. Mild pulmonary hypertension. Continue IV diuretics Neurologist on board. Recommendations noted. Monitor electrolytes while on diuresis Daily weights. Monitor I's and O's (3) Atrial fibrillation with rapid ventricular response: Plan: New onset A fib with RVR Diltiazem drip has been weaned off. Continue heparin drip. Plan to discharge on Eliquis Continue po metoprolol (4) Elevated troponin: Plan: Initial troponin 0.080, likely demand ischemia in setting of volume overload, Denies Chest pain (5) CAD (coronary artery disease): Plan: Continue aspirin, statin (6) Hypertension: Plan: Continue lisinopril (7) HLD (hyperlipidemia): Plan: Continue statin COVID 19 Infection States having respiratory symptoms for about 2 weeks H/O CoVID infection earlier this year Reports full vaccination with Pfizer in January 2021 -CXR:Interval worsening of interstitial and alveolar opacities bilaterally which could represent a viral type pneumonitis rather than congestive heart failure. If indicated clinically, follow-up CT could be obtained for further evaluation. Continue IV dexamethasone and monitor Weaned off oxygen this morning. Will need 2 step prior to discharge DVT Pp: IV heparin Code status: Conditional - YES to CPR/shocks, NO to intubation Admission and Anticipated Discharge Date Admission Date: May 10, 2021 Subjective 75-year-old man with history of severe aortic stenosis, CAD, hypertension who presented with worsening exertional dyspnea with going for about 2 weeks. Being managed for acute systolic and diastolic heart failure, A. fib with RVR. Patient seen and examined this afternoon. Reports much improvement in symptoms since admission. Still reports some shortness of breath with some Exertion but not at rest leg swelling but improving Occasional cough. Denies any chest pain, palpitations Denies any nausea, vomiting, abdominal pain, diarrhea constipation Denies any dysuria, frequency, urgency, hematuria Denies any fevers, chills Physical Exam Constitutional: + well hydrated; no acute distress Eyes: PERRL, conjunctivae normal, anicteric sclerae ENMT: external ear and nose normal, oropharynx normal Respiratory: not in respiratory distress. Diminished breath sounds Cardiovascular: Rate/Rhythm: + irregularly irregular S1/S2 Gastrointestinal (Abdomen): normal bowel sounds, soft, nontender, no hepatosplenomegaly Musculoskeletal: Bilateral pitting pedal edema Neurologic: PERRL, EOMI, accommodation nl, no face palsy, no dysarthria Psychiatric: A+Ox3, euthymic affect Results & Data Results & Data ([facility]) Vital Signs (Past 12 Hours) Vital Signs Temp Pulse Resp BP Pulse Ox 05/12/21 11:08 36.7 C 101 H 20 102/75 97 05/12/21 07:03 36.2 C L 83 20 105/76 92 05/12/21 03:22 36.5 C 78 18 106/72 91 Laboratory Results Abnormal lab results 05/11/21 05/11/21 05/12/21 Range/Units 06:56 14:58 06:37 RBC 4.17 L (4.7-6.1) M/uL Hgb 13.6 L (14.0-18.0) g/dL MCV 101.9 H (80-100) fL RDW Std Deviation 62.4 H (36.4-46.3) fL RDW Coeff of Meghan 16.7 H (11.5-14.5) % APTT 50.7 H* (21.0-31.0) Seconds BUN (7-18) mg/dl BUN/Creatinine Ratio (10-20) Glucose (70-99) mg/dl Total Bilirubin (0.2-1) mg/dl AST (15-37) U/L C-Reactive Protein 1.30 H (0-0.29) mg/dl Albumin (3.4-5.0) gm/dl Albumin/Globulin Ratio (0.9-2) 05/12/21 05/12/21 Range/Units 06:37 06:37 RBC (4.7-6.1) M/uL Hgb (14.0-18.0) g/dL MCV (80-100) fL RDW Std Deviation (36.4-46.3) fL RDW Coeff of Meghan (11.5-14.5) % APTT 67.0 H* (21.0-31.0) Seconds BUN 28 H (7-18) mg/dl BUN/Creatinine Ratio 24.5 H (10-20) Glucose 126 H (70-99) mg/dl Total Bilirubin 1.7 H (0.2-1) mg/dl AST 50 H (15-37) U/L C-Reactive Protein (0-0.29) mg/dl Albumin 2.8 L (3.4-5.0) gm/dl Albumin/Globulin Ratio 0.7 L (0.9-2)
[2021-05-12] MEDS: dilTIAZem HCL 125 MG in DEXTROSE 5% 100 ML IV SCH (16:43)
[2021-05-12 18:07] LABS: Partial Thromboplastin Time 53.3 Seconds (21.0-31.0)
[2021-05-12] MEDS: ATORVASTATIN 40 MG TAB PO SCH (20:06)
[2021-05-13] MEDS: METOPROLOL TARTRATE 25 MG TAB PO SCH (05:33)
[2021-05-13 06:57] LABS: Hematocrit (blood only) 38.9 % (42-52); Hemoglobin 12.5 g/dL (14.0-18.0); Mean Corpuscular Hemoglobin 32.5 pg (25-34); Mean Corpuscular Hgb Conc 32.1 g/dL (32-36); Mean Platelet Volume 9.9 fL (7.4-10.4); Platelet Count 279 K/uL (130-400); RDW Coefficient of Variation 16.7 % (11.5-14.5); RDW Standard Deviation 61.8 fL (36.4-46.3); Red Blood Count 3.85 M/uL (4.7-6.1); White Blood Count 11.96 K/uL (4.8-10.8)
[2021-05-13 07:14] LABS: Partial Thromboplastin Ratio 2.2
[2021-05-13 07:25] LABS: Partial Thromboplastin Time 56.6 Seconds (21.0-31.0)
[2021-05-13 07:27] LABS: BUN Creatinine Ratio 29.6 (10-20); Calcium 8.7 mg/dl (8.5-10.1); Creatinine Clr Calc Pharmacy 65.4 ml/min; Est GFR (African American) 71.2 ml/min; Est GFR (Non-African American) 61.5 ml/min; Magnesium 1.7 mg/dl (1.8-2.4)
[2021-05-13] MEDS: ASPIRIN 81 MG ECTAB PO SCH (08:13)
[2021-05-13] MEDS: PSYLLIUM 58.6% POWDER PACKET PO SCH (08:13)
[2021-05-13] MEDS: lisinopril 40 MG TAB PO SCH (08:13)
[2021-05-13] MEDS: dexAMETHasone 6 MG in SYRINGE 0 ML IV SCH (08:14)
[2021-05-13] MEDS: FUROSEMIDE 40 MG/4 ML VIAL IV SCH ×2 (08:18→20:08)
[2021-05-13] MEDS: HEPARIN SODIUM/DEXTROSE 25,000 UNITS/500 ML BAG IV SCH (08:19)
--- NOTE | 2021-05-13 11:38 | Cardiology Progress Note ---
Date of Service May 13, 2021 Assessment & Plan (1) Acute combined systolic and diastolic heart failure: (2) Atrial fibrillation with rapid ventricular response: (3) Severe aortic stenosis: (4) Mitral regurgitation: (5) CAD (coronary artery disease): (6) Elevated troponin: (7) Cardiomyopathy: (8) Hypertension: (9) HLD (hyperlipidemia): Plan: ASSESSMENT/PLAN: 1. Acute combined systolic/diastolic CHF (HF with mid range EF): He continues to have an element of lower extremity edema. Yesterday he did well on his current regimen of diuretic. I think we will continue his current regimen, monitoring his symptoms, exam and renal function. 2. Atrial fibrillation with rapid ventricular response: Well controlled at rest. He will likely need some increased metoprolol for better rate control. 3. Severe aortic stenosis: This can be addressed on an outpatient basis. 4. Elevated troponin: Possibly related to his aortic stenosis. No current symptoms of coronary insufficiency or angina. 5. CAD s/p dominant Circumflex and PDA PCI: No angina. Continue aspirin 81 mg daily. Continue high-intensity statin therapy. Continue beta-lesly, which was initiated this hospital stay. 6. Mitral regurgitation: Moderate on current echocardiogram. 7. Cardiomyopathy: Ejection fraction 45%. Will plan to change to metoprolol succinate once the appropriate rate control dose has been achieved. 8. Hypertension: Good blood pressure control. 9. Dyslipidemia: Continue high-intensity statin therapy. Admission and Anticipated Discharge Date Admission Date: May 10, 2021 Subjective This morning patient claims to be feeling well. He states his breathing is good. He has not really ambulated much around the room. He denies any symptoms of chest pain. Not aware of any palpitations. Lower extremity edema improved by his report. Review of Systems Review of Systems: Per HPI Physical Exam Physical Exam: Gen.: No acute distress. Alert and oriented. HEENT: Anicteric sclera. Cardiac: Irregularly irregular with normal rate. Normal S1-S2. Very soft systolic murmur a variable intensity No rubs or gallops. Pulmonary: Decreased breath sounds bilaterally. Occasional crackle. Extremities: 2+ radial pulses bilaterally. 2+ posterior tibialis pulses bilaterally. 2+ bilateral lower extremity edema. No cyanosis. Psychiatric: Affect appears appropriate. Results & Data ([facility]) Vital Signs (Past 12 Hours) Vital Signs Temp Pulse Resp BP Pulse Ox 05/13/21 07:05 36.5 C 81 19 105/72 91 05/13/21 03:22 36.5 C 85 16 100/63 95 Laboratory Results Abnormal Lab Results 05/12/21 05/13/21 05/13/21 17:17 05:49 05:49 WBC 11.96 H RBC 3.85 L Hgb 12.5 L Hct 38.9 L MCV 101.0 H MCH 32.5 MCHC 32.1 RDW Std Deviation 61.8 H RDW Coeff of Meghan 16.7 H Plt Count 279 MPV 9.9 APTT 53.3 H* 56.6 H* PTT Ratio 2.0 2.2 Sodium Potassium Chloride Carbon Dioxide Anion Gap BUN Creatinine Est Cr Clr Drug Dosing Est GFR ( Amer) Est GFR (Non-Af Amer) BUN/Creatinine Ratio Glucose Calcium Magnesium 05/13/21 05:49 WBC RBC Hgb Hct MCV MCH MCHC RDW Std Deviation RDW Coeff of Meghan Plt Count MPV APTT PTT Ratio Sodium 139 Potassium 4.0 Chloride 105 Carbon Dioxide 28 Anion Gap 6.0 BUN 34 H Creatinine 1.15 Est Cr Clr Drug Dosing 65.4 Est GFR ( Amer) 71.2 Est GFR (Non-Af Amer) 61.5 BUN/Creatinine Ratio 29.6 H Glucose 131 H Calcium 8.7 Magnesium 1.7 L Diagnostic Findings Echocardiogram performed 05/11/2021: Ejection fraction 45%. Moderate to severe LVH. Severe aortic stenosis. Moderate mitral regurgitation. PG Care Time/CCT Total # of Minutes Spent Total Time Spent with Patient: Total time spent is greater than 50% in coordination of care (as documented) at patient's floor/unit and/or counseling patient: Coding Level of Care Code 03269 Subseq Hosp Care Lvl 3 Diagnoses Acute combined systolic and diastolic heart failure I50.41 Atrial fibrillation with rapid ventricular response I48.91 Severe aortic stenosis I35.0 Mitral regurgitation I34.0 CAD (coronary artery disease) I25.10 Elevated troponin R77.8 Cardiomyopathy I42.9 Hypertension I10 HLD (hyperlipidemia) E78.5
[2021-05-13] MEDS: dilTIAZem HCL 125 MG in DEXTROSE 5% 100 ML IV SCH (12:25)
[2021-05-13] MEDS: METOPROLOL TARTRATE 50 MG TAB PO SCH ×2 (12:48→19:49)
--- NOTE | 2021-05-13 15:26 | Hospitalist Progress Note ---
Date of Service May 13, 2021 Assessment & Plan (1) Acute decompensated heart failure: (2) Severe aortic stenosis: Plan: Acute systolic/diastolic CHF Presented with exertional dyspnea, orthopnea, PND and 20-25lb weight gain in past 2 weeks -CXR with diffuse interstitial and alveolar edema most characteristic of congestive heart failure. Small left pleural effusion and left basilar atelectasis also present -Follows with Dr. Chun, stable severe aortic stenosis present on last echo in August 2020. Repeat echo ordered Was not on diuretics at home -ECHO: EF 45%, global hypokinesis, moderate to severe concentric LVH. Mildly dilated right ventricle with normal systolic function. Biatrial dilatation. Severe aortic stenosis with trace regurgitation. Moderate mitral regurgitation. Mild pulmonary hypertension. Continue IV lasix bid Neurologist on board. Recommendations noted. Monitor electrolytes while on diuresis Daily weights. Monitor I's and O's (3) Atrial fibrillation with rapid ventricular response: Plan: New onset A fib with RVR Currently on heparin drip Transition to eliquis this evening Metoprolol increased to 50mg tid by Cardiology (4) Elevated troponin: Plan: Initial troponin 0.080, likely demand ischemia in setting of volume overload, Denies Chest pain (5) CAD (coronary artery disease): Plan: Continue aspirin, statin (6) Hypertension: Plan: Continue lisinopril (7) HLD (hyperlipidemia): Plan: Continue statin COVID 19 Infection Started having respiratory symptoms for about 2 weeks H/O CoVID infection earlier this year Reported full vaccination with Pfizer in January 2021 -CXR:Interval worsening of interstitial and alveolar opacities bilaterally which could represent a viral type pneumonitis rather than congestive heart failure. If indicated clinically, follow-up CT could be obtained for further evaluation. Continue IV dexamethasone and monitor Will need 2 step prior to discharge DVT Ppx: IV heparin Code status: Conditional - YES to CPR/shocks, NO to intubation Admission and Anticipated Discharge Date Admission Date: May 10, 2021 Subjective 75-year-old man with history of severe aortic stenosis, CAD, hypertension who presented with worsening exertional dyspnea with going for about 2 weeks. Being managed for acute systolic and diastolic heart failure, A. fib with RVR. Patient seen and examined this afternoon. Reports much improvement in symptoms since admission. Still reports some shortness of breath with some exertion but not at rest Still has leg swelling Has occasional . Denies any chest pain, palpitations Denies any nausea, vomiting, abdominal pain, diarrhea constipation Denies any dysuria, frequency, urgency, hematuria Denies any fevers, chills Physical Exam Constitutional: + well hydrated; no acute distress Eyes: PERRL, conjunctivae normal, anicteric sclerae ENMT: external ear and nose normal, oropharynx normal Cardiovascular: Rate/Rhythm: + irregularly irregular S1 S2 Gastrointestinal (Abdomen): normal bowel sounds, soft, nontender, no hepatosplenomegaly Musculoskeletal: b/l SANJAY Neurologic: PERRL, EOMI, accommodation nl, no face palsy, no dysarthria Psychiatric: A+Ox3, euthymic affect Results & Data Results & Data ([facility]) Vital Signs (Past 12 Hours) Vital Signs Temp Pulse Resp BP Pulse Ox 05/13/21 15:02 36.6 C 93 H 19 101/61 96 05/13/21 11:39 36.5 C 112 H 18 108/78 98 05/13/21 07:05 36.5 C 81 19 105/72 91 Laboratory Results Abnormal lab results 05/12/21 05/13/21 05/13/21 Range/Units 17:17 05:49 05:49 WBC 11.96 H (4.8-10.8) K/uL RBC 3.85 L (4.7-6.1) M/uL Hgb 12.5 L (14.0-18.0) g/dL Hct 38.9 L (42-52) % MCV 101.0 H (80-100) fL RDW Std Deviation 61.8 H (36.4-46.3) fL RDW Coeff of Meghan 16.7 H (11.5-14.5) % APTT 53.3 H* 56.6 H* (21.0-31.0) Seconds BUN (7-18) mg/dl BUN/Creatinine Ratio (10-20) Glucose (70-99) mg/dl Magnesium (1.8-2.4) mg/dl 05/13/21 Range/Units 05:49 WBC (4.8-10.8) K/uL RBC (4.7-6.1) M/uL Hgb (14.0-18.0) g/dL Hct (42-52) % MCV (80-100) fL RDW Std Deviation (36.4-46.3) fL RDW Coeff of Meghan (11.5-14.5) % APTT (21.0-31.0) Seconds BUN 34 H (7-18) mg/dl BUN/Creatinine Ratio 29.6 H (10-20) Glucose 131 H (70-99) mg/dl Magnesium 1.7 L (1.8-2.4) mg/dl
[2021-05-13] MEDS: APIXABAN 5 MG TABLET PO SCH (19:49)
[2021-05-13] MEDS: ATORVASTATIN 40 MG TAB PO SCH (19:50)
[2021-05-14 07:19] LABS: Hematocrit (blood only) 40.5 % (42-52); Hemoglobin 13.1 g/dL (14.0-18.0); Mean Corpuscular Hemoglobin 32.7 pg (25-34); Mean Corpuscular Hgb Conc 32.3 g/dL (32-36); Mean Platelet Volume 9.5 fL (7.4-10.4); Platelet Count 253 K/uL (130-400); RDW Coefficient of Variation 16.5 % (11.5-14.5); RDW Standard Deviation 61.8 fL (36.4-46.3); Red Blood Count 4.01 M/uL (4.7-6.1); White Blood Count 13.13 K/uL (4.8-10.8)
[2021-05-14 07:28] LABS: Partial Thromboplastin Time 25.4 Seconds (21.0-31.0)
[2021-05-14 07:45] LABS: BUN Creatinine Ratio 30.5 (10-20); Calcium 8.6 mg/dl (8.5-10.1); Creatinine Clr Calc Pharmacy 64.3 ml/min; Est GFR (African American) 66.3 ml/min; Est GFR (Non-African American) 57.2 ml/min; Magnesium 1.8 mg/dl (1.8-2.4); Phosphorus 3.5 mg/dl (2.5-4.9); Potassium 4.1 mmol/L (3.5-5.1)
[2021-05-14] MEDS: METOPROLOL TARTRATE 50 MG TAB PO SCH ×3 (08:25→21:00)
[2021-05-14] MEDS: dexAMETHasone 6 MG in SYRINGE 0 ML IV SCH (08:25)
[2021-05-14] MEDS: APIXABAN 5 MG TABLET PO SCH ×2 (08:25→21:00)
[2021-05-14] MEDS: lisinopril 40 MG TAB PO SCH (08:25)
[2021-05-14] MEDS: ASPIRIN 81 MG ECTAB PO SCH (08:26)
[2021-05-14] MEDS: PSYLLIUM 58.6% POWDER PACKET PO SCH (08:27)
[2021-05-14] MEDS: FUROSEMIDE 40 MG/4 ML VIAL IV SCH ×2 (08:30→21:02)
--- NOTE | 2021-05-14 12:30 | Hospitalist Progress Note ---
Date of Service May 14, 2021 Assessment & Plan (1) Acute decompensated heart failure: (2) Severe aortic stenosis: Plan: Acute systolic/diastolic CHF Presented with exertional dyspnea, orthopnea, PND and 20-25lb weight gain in past 2 weeks -CXR with diffuse interstitial and alveolar edema most characteristic of congestive heart failure. Small left pleural effusion and left basilar atelectasis also present -Follows with Dr. Chun, stable severe aortic stenosis present on last echo in August 2020. Repeat echo ordered Was not on diuretics at home -ECHO: EF 45%, global hypokinesis, moderate to severe concentric LVH. Mildly dilated right ventricle with normal systolic function. Biatrial dilatation. Severe aortic stenosis with trace regurgitation. Moderate mitral regurgitation. Mild pulmonary hypertension. Curretly on IV lasix Ssis Developer on board. Recommendations noted. Monitor electrolytes while on diuresis Daily weights. Monitor I's and O's (3) Atrial fibrillation with rapid ventricular response: Plan: New onset A fib with RVR Continue eliquis Metoprolol increased to 50mg tid by Cardiology (4) Elevated troponin: Plan: Initial troponin 0.080, likely demand ischemia in setting of volume overload, Denies Chest pain (5) CAD (coronary artery disease): Plan: Continue aspirin, statin (6) Hypertension: Plan: Continue lisinopril (7) HLD (hyperlipidemia): Plan: Continue statin COVID 19 Infection Started having respiratory symptoms for about 2 weeks H/O CoVID infection earlier this year Reported full vaccination with Pfizer in January 2021 -CXR:Interval worsening of interstitial and alveolar opacities bilaterally which could represent a viral type pneumonitis rather than congestive heart failure. If indicated clinically, follow-up CT could be obtained for further evaluation. Continue IV dexamethasone and monitor Will need 2 step prior to discharge DVT Ppx: IV heparin Code status: Conditional - YES to CPR/shocks, NO to intubation Admission and Anticipated Discharge Date Admission Date: May 10, 2021 Subjective 75-year-old man with history of severe aortic stenosis, CAD, hypertension who presented with worsening exertional dyspnea with going for about 2 weeks. Being managed for acute systolic and diastolic heart failure, A. fib with RVR. Patient seen and examined this afternoon. Reports much improvement in symptoms since admission. Denied any exertional dyspnea today Still has leg swelling but states that is improving Denies any chest pain, palpitations Denies any nausea, vomiting, abdominal pain, diarrhea constipation Denies any dysuria, frequency, urgency, hematuria Denies any fevers, chills Physical Exam Constitutional: + well hydrated; no acute distress Eyes: PERRL, conjunctivae normal, anicteric sclerae ENMT: external ear and nose normal, oropharynx normal Respiratory: On room air. Decreased breath sounds Cardiovascular: Rate/Rhythm: + irregularly irregular S1 S2 Gastrointestinal (Abdomen): normal bowel sounds, soft, nontender, no hepatosplenomegaly Musculoskeletal: B/l SANJAY Neurologic: PERRL, EOMI, accommodation nl, no face palsy, no dysarthria Psychiatric: A+Ox3, euthymic affect Results & Data Results & Data ([facility]) Vital Signs (Past 12 Hours) Vital Signs Temp Pulse Resp BP BP Pulse Ox 05/14/21 12:08 36.5 C 81 18 110/80 90 05/14/21 08:21 108 H 102/72 05/14/21 07:09 36.3 C L 89 20 95/71 L 90 05/14/21 03:55 36.6 C 88 20 96/60 L 95 Laboratory Results Abnormal lab results 05/14/21 05/14/21 Range/Units 06:34 06:34 WBC 13.13 H (4.8-10.8) K/uL RBC 4.01 L (4.7-6.1) M/uL Hgb 13.1 L (14.0-18.0) g/dL Hct 40.5 L (42-52) % MCV 101.0 H (80-100) fL RDW Std Deviation 61.8 H (36.4-46.3) fL RDW Coeff of Meghan 16.5 H (11.5-14.5) % BUN 37 H (7-18) mg/dl BUN/Creatinine Ratio 30.5 H (10-20) Glucose 117 H (70-99) mg/dl
[2021-05-14] MEDS: ATORVASTATIN 40 MG TAB PO SCH (21:02)
[2021-05-15 06:52] LABS: BUN Creatinine Ratio 36.7 (10-20); Calcium 8.9 mg/dl (8.5-10.1); Creatinine Clr Calc Pharmacy 74.7 ml/min; Est GFR (African American) 81.4 ml/min; Est GFR (Non-African American) 70.2 ml/min; Magnesium 1.8 mg/dl (1.8-2.4); Potassium 3.8 mmol/L (3.5-5.1)
[2021-05-15] MEDS: ASPIRIN 81 MG ECTAB PO SCH (08:50)
[2021-05-15] MEDS: dexAMETHasone 6 MG in SYRINGE 0 ML IV SCH (08:50)
[2021-05-15] MEDS: METOPROLOL TARTRATE 50 MG TAB PO SCH ×3 (08:51→19:36)
[2021-05-15] MEDS: APIXABAN 5 MG TABLET PO SCH ×2 (08:51→19:35)
[2021-05-15] MEDS: FUROSEMIDE 40 MG/4 ML VIAL IV SCH ×2 (08:51→20:56)
[2021-05-15] MEDS: lisinopril 40 MG TAB PO SCH (08:51)
[2021-05-15] MEDS: PSYLLIUM 58.6% POWDER PACKET PO SCH (08:51)
--- NOTE | 2021-05-15 14:03 | Hospitalist Progress Note ---
Date of Service May 15, 2021 Assessment & Plan (1) Acute decompensated heart failure: (2) Severe aortic stenosis: Plan: Acute systolic/diastolic CHF Presented with exertional dyspnea, orthopnea, PND and 20-25lb weight gain in past 2 weeks -CXR with diffuse interstitial and alveolar edema most characteristic of congestive heart failure. Small left pleural effusion and left basilar atelectasis also present -Follows with Dr. Chun, stable severe aortic stenosis present on last echo in August 2020. Repeat echo ordered Was not on diuretics at home -ECHO: EF 45%, global hypokinesis, moderate to severe concentric LVH. Mildly dilated right ventricle with normal systolic function. Biatrial dilatation. Severe aortic stenosis with trace regurgitation. Moderate mitral regurgitation. Mild pulmonary hypertension. Curretly on IV lasix Radiologic Technologist Mammogram on board. Discussed with Dr Roy today. Will continue IV lasix today and consider changing to po tomorrow Monitor electrolytes while on diuresis Daily weights. Monitor I's and O's (3) Atrial fibrillation with rapid ventricular response: Plan: New onset A fib with RVR Continue eliquis Rate controlled with lopressor 50mg tid (4) Elevated troponin: Plan: Initial troponin 0.080, likely demand ischemia in setting of volume overload, Denies Chest pain (5) CAD (coronary artery disease): Plan: Continue aspirin, statin (6) Hypertension: Plan: Continue lisinopril (7) HLD (hyperlipidemia): Plan: Continue statin COVID 19 Infection Started having respiratory symptoms for about 2 weeks H/O CoVID infection earlier this year Reported full vaccination with Pfizer in January 2021 -CXR:Interval worsening of interstitial and alveolar opacities bilaterally which could represent a viral type pneumonitis rather than congestive heart failure. If indicated clinically, follow-up CT could be obtained for further evaluation. Continue IV dexamethasone and monitor while inpatient Will need 2 step prior to discharge DVT Ppx: Eliquis Code status: Conditional - YES to CPR/shocks, NO to intubation Admission and Anticipated Discharge Date Admission Date: May 10, 2021 Subjective 75-year-old man with history of severe aortic stenosis, CAD, hypertension who presented with worsening exertional dyspnea with going for about 2 weeks. Being managed for acute systolic and diastolic heart failure, A. fib with RVR. Patient seen and examined this afternoon. No exertional dyspnea Leg swelling improving Denies any chest pain, palpitations Denies any nausea, vomiting, abdominal pain, diarrhea constipation Denies any dysuria, frequency, urgency, hematuria Denies any fevers, chills Physical Exam Constitutional: + well hydrated; no acute distress Eyes: PERRL, conjunctivae normal, anicteric sclerae ENMT: external ear and nose normal, oropharynx normal Respiratory: normal respiratory effort, lungs clear to auscultation Cardiovascular: Rate/Rhythm: + irregularly irregular S1 S2 Gastrointestinal (Abdomen): normal bowel sounds, soft, nontender, no hepatosplenomegaly Musculoskeletal: b/l SANJAY Neurologic: PERRL, EOMI, accommodation nl, no face palsy, no dysarthria Psychiatric: A+Ox3, euthymic affect Results & Data Results & Data ([facility]) Vital Signs (Past 12 Hours) Vital Signs Temp Pulse Pulse Resp BP BP Pulse Ox 05/15/21 13:21 93 H 108/81 05/15/21 11:36 36.8 C 79 19 100/66 93 05/15/21 07:46 88 05/15/21 07:41 36.6 C 87 20 105/61 98 05/15/21 02:41 36.6 C 89 20 107/83 95 Laboratory Results Abnormal lab results 05/15/21 Range/Units 05:30 Carbon Dioxide 36 H (21-32) mmol/L Anion Gap 0 L (3-11) BUN 38 H (7-18) mg/dl BUN/Creatinine Ratio 36.7 H (10-20) Glucose 114 H (70-99) mg/dl
[2021-05-15] MEDS: ATORVASTATIN 40 MG TAB PO SCH (19:36)
[2021-05-16 08:04] LABS: Calcium 8.5 mg/dl (8.5-10.1); Est GFR (African American) 84.4 ml/min; Est GFR (Non-African American) 72.8 ml/min; Magnesium 1.7 mg/dl (1.8-2.4); Potassium 3.8 mmol/L (3.5-5.1)
[2021-05-16 08:05] LABS: Phosphorus 3.3 mg/dl (2.5-4.9)
[2021-05-16] MEDS: lisinopril 40 MG TAB PO SCH (08:58)
[2021-05-16] MEDS: ASPIRIN 81 MG ECTAB PO SCH (08:58)
[2021-05-16] MEDS: FUROSEMIDE 40 MG/4 ML VIAL IV SCH (08:58)
[2021-05-16] MEDS: dexAMETHasone 6 MG in SYRINGE 0 ML IV SCH (08:58)
[2021-05-16] MEDS: METOPROLOL TARTRATE 50 MG TAB PO SCH ×2 (08:58→14:01)
[2021-05-16] MEDS: APIXABAN 5 MG TABLET PO SCH (08:59)
[2021-05-16] MEDS: PSYLLIUM 58.6% POWDER PACKET PO SCH (08:59)
--- NOTE | 2021-05-16 15:45 | Cardiology Progress Note ---
Date of Service May 16, 2021 Assessment & Plan (1) Acute combined systolic and diastolic heart failure: (2) Atrial fibrillation with rapid ventricular response: (3) Severe aortic stenosis: (4) Mitral regurgitation: (5) CAD (coronary artery disease): (6) Elevated troponin: (7) Cardiomyopathy: (8) Hypertension: (9) HLD (hyperlipidemia): Plan: ASSESSMENT/PLAN: 1. Acute combined systolic/diastolic CHF (HF with mid range EF): He has affected a very aggressive diuresis. I do not believe he requires any additional intravenous diuretic. I think he could easily be switched to an oral regimen of 40 mg Lasix daily. Renal function has been stable. Blood pressure has been stable. 2. Atrial fibrillation with rapid ventricular response: Overall rate control appears to be good. Certainly at rest his rates are well controlled. With ambulation the increase slightly but not dramatically so. I think he could easily be discharged metoprolol succinate 100 mg twice daily. 3. Severe aortic stenosis: This can be addressed on an outpatient basis. 4. Elevated troponin: Possibly related to his aortic stenosis. No current symptoms of coronary insufficiency or angina. 5. CAD s/p dominant Circumflex and PDA PCI: No angina. Continue aspirin 81 mg daily. Continue high-intensity statin therapy. Continue beta-lesly, which was initiated this hospital stay. 6. Mitral regurgitation: Moderate on current echocardiogram. 7. Cardiomyopathy: Ejection fraction 45%. We will discharge metoprolol succinate 100 mg twice daily and lisinopril. 8. Hypertension: Good blood pressure control. 9. Dyslipidemia: Continue high-intensity statin therapy. Admission and Anticipated Discharge Date Admission Date: May 10, 2021 Subjective This afternoon the patient claims to be feeling well. He reported being ambulatory to the [facility] on several occasions without dizziness or significant dyspnea. He has not been aware of any palpitations. No chest pain. Review of Systems Review of Systems: Per HPI Physical Exam Physical Exam: Gen.: No acute distress. Alert and oriented. HEENT: Anicteric sclera. Cardiac: Irregularly irregular with normal rate. Normal S1-S2. Very soft systolic murmur a variable intensity No rubs or gallops. Pulmonary: Decreased breath sounds bilaterally. Occasional crackle. Extremities: 2+ radial pulses bilaterally. 2+ posterior tibialis pulses bilaterally. 1+ bilateral lower extremity edema. No cyanosis. Psychiatric: Affect appears appropriate. Results & Data ([facility]) Vital Signs (Past 12 Hours) Vital Signs Temp Pulse Pulse Pulse Pulse Pulse Resp 05/16/21 15:37 36.5 C 05/16/21 15:35 90 18 05/16/21 14:49 110 H 100 H 86 05/16/21 14:00 88 05/16/21 11:24 36.3 C L 77 18 05/16/21 07:21 79 05/16/21 07:06 36.4 C L 102 H 18 05/16/21 04:06 Resp Resp Resp BP Pulse Ox Pulse Ox Pulse Ox 05/16/21 15:37 05/16/21 15:35 95/71 L 90 05/16/21 14:49 20 18 16 89 L 91 05/16/21 14:00 110/72 05/16/21 11:24 102/71 95 05/16/21 07:21 05/16/21 07:06 114/92 96 05/16/21 04:06 88/51 L Pulse Ox 05/16/21 15:37 05/16/21 15:35 05/16/21 14:49 93 05/16/21 14:00 05/16/21 11:24 05/16/21 07:21 05/16/21 07:06 05/16/21 04:06 Laboratory Results Abnormal Lab Results 05/16/21 05:49 Sodium 141 Potassium 3.8 Chloride 99 Carbon Dioxide 34 H Anion Gap 8.0 BUN 34 H Creatinine 1.00 Est Cr Clr Drug Dosing 77.0 Est GFR ( Amer) 84.4 Est GFR (Non-Af Amer) 72.8 BUN/Creatinine Ratio 34.0 H Glucose 105 H Calcium 8.5 Phosphorus 3.3 Magnesium 1.7 L PG Care Time/CCT Total # of Minutes Spent Total Time Spent with Patient: Total time spent is greater than 50% in coordination of care (as documented) at patient's floor/unit and/or counseling patient: Coding Level of Care Code 60258 Subseq Hosp Care Lvl 2 Diagnoses Acute combined systolic and diastolic heart failure I50.41 Atrial fibrillation with rapid ventricular response I48.91 Severe aortic stenosis I35.0 Mitral regurgitation I34.0 CAD (coronary artery disease) I25.10 Elevated troponin R77.8 Cardiomyopathy I42.9 Hypertension I10 HLD (hyperlipidemia) E78.5
--- NOTE | 2021-05-16 19:45 | Discharge Summary ---
Date of Service May 16, 2021 Admission HPI Per Admitting Provider This is a 75yo M with a PMH of severe aortic stenosis, CAD, hypertension, HLD and other medical problems listed below who presents with worsening exertional dyspnea and weight gain x 2 weeks. Endorses a 20-25 pound weight gain in the past few weeks noted in his abdomen and lower legs. Also endorsing dyspnea nof exertion, having to stop and rest after walking 50 feet. +Orthopnea and PND. Dry cough. Lives alone and is active at baseline, cleaning his own house and mowing the lawn. No fever, chills, lightheadedness, chest pain. No palpitations. No nausea, vomiting, abdominal pain, dysuria, diarrhea or constipation. Follows with Dr. Chun for cardiology. Severe aortic stenosis unchanged on prior echo from August 2020. No dietary changes and takes medication regularly. Admission Exam Per Admitting Provider General Appearance: Morbidly obese, no apparent distress Head: normocephalic, Atraumatic Eyes: normal inspection, EOMI Neck: supple, Trachea midline Respiratory/Chest: Decreased breath sounds, bilateral crackles, CTA, No accessory muscle use Cardiovascular: Irregularly irregular, tachycardia, +murmur Abdomen/GI:Soft, Non tender, Bowel sounds present, distended Extremities/Musculoskeletal:normal inspection, bilateral 3+ lower extremity edema Neurologic/Psych:AAOX3, grossly no focal neurological deficits Skin: normal color, warm Principal Diagnosis Acute combined systolic and diastolic heart failure Atrial fibrillation with rapid ventricular rate Aortic stenosis Discharge Exam Constitutional + well hydrated; no acute distress Eyes PERRL, conjunctivae normal, anicteric sclerae ENMT external ear and nose normal, oropharynx normal Respiratory normal respiratory effort, lungs clear to auscultation Cardiovascular Rate/Rhythm: + irregularly irregular S1-S2 Gastrointestinal (Abdomen) normal bowel sounds, soft, nontender, no hepatosplenomegaly Musculoskeletal Bilateral pedal edema [improved since admission] Neurologic PERRL, EOMI, accommodation nl, no face palsy, no dysarthria Psychiatric A+Ox3, euthymic affect Discharge Data Allergies Allergy/AdvReac Type Severity Reaction Status Date / Time No Known Drug Allergies Allergy Verified 05/10/21 17:52 Consultations 05/10/21 18:08 ED Decision to Admit Stat 05/10/21 21:30 Consult Cardiology Routine Ordered Studies 11/22/21 19:29 US abdomen ltd ascites Routine Hospital Course (1) Acute decompensated heart failure: (2) Severe aortic stenosis: Acute systolic/diastolic CHF Presented with exertional dyspnea, orthopnea, PND and 20-25lb weight gain in past 2 weeks -CXR with diffuse interstitial and alveolar edema most characteristic of congestive heart failure. Small left pleural effusion and left basilar atelectasis also present -Follows with Dr. Chun, stable severe aortic stenosis present on last echo in August 2020. Repeat echo ordered Was not on diuretics at home -ECHO: EF 45%, global hypokinesis, moderate to severe concentric LVH. Mildly dilated right ventricle with normal systolic function. Biatrial dilatation. Severe aortic stenosis with trace regurgitation. Moderate mitral regurgitation. Mild pulmonary hypertension. Patient had extensive diuresis with IV Lasix while in the hospital. Was comanaged with the antenna design engineer Patient discharged on Lasix 40 mg daily per antenna design engineer recommendation Patient will follow up closely with cardiology outpatient (3) Atrial fibrillation with rapid ventricular response: New onset A fib with RVR Was initially on heparin drip and transitioned to Eliquis. Rate controlled with metoprolol. Discussed with antenna design engineer today who recommend discharging on metoprolol succinate 100 mg twice daily (4) Elevated troponin: Initial troponin 0.080, likely demand ischemia in setting of volume overload, Denies Chest pain (5) CAD (coronary artery disease): Continue aspirin, statin (6) Hypertension: Continue lisinopril (7) HLD (hyperlipidemia): Continue statin COVID 19 Infection Possible COVID 19 Pneumonia Started having respiratory symptoms for about 2 weeks H/O CoVID infection earlier this year Reported full vaccination with Pfizer in January 2021 -CXR:Interval worsening of interstitial and alveolar opacities bilaterally which could represent a viral type pneumonitis rather than congestive heart failure. If indicated clinically, follow-up CT could be obtained for further evaluation. Patient was treated with IV dexamethasone while inpatient. 2 steps done today does not indicate any oxygen requirement. Total Time Total Time Spent Total Time Spent (In Minutes): 50 Total Time Includes: Examination of the Patient, Discharge Planning, Medication Reconciliation and Communication With Other Providers Discharge Plan Discharge Items Patient Disposition: Home - Self-Care Reason For Visit: Worsening shortness of breath Discharge Diagnosis: Acute combined systolic and diastolic heart failure Atrial fibrillation with rapid ventricular rate Aortic stenosis Activity: Resume your previous activity Non-emergency contact: Primary Care Provider and Adhesion Tester Call non-emergency contact if: you have any medication questions and your symptoms worsen Follow-up/Referrals: Zoë Clifton PA-C [Physician Flooring Sales Manager] - 05/21/21 11:00 am (Congestive Heart Failure Program Appointment Information Early follow up is essential to managing your heart failure. An appointment has been scheduled for you with the [facility] Heart Failure Program within 7 days of discharge. Anticipate this visit to be 30-60 minutes long. Please expect a blending operator phone call from one of our nurses approximately 48 hours from discharge. They will also be placing an order for lab work to be completed 1-2 days prior to your heart failure follow up appointment. Please be sure to have this done so we can go over the results when you come in. Office Location The cardiology office building is located in front of the hospital at [address]. Bring the following with you to your follow-up doctor appointments: Please bring your daily weight log any discharge paperwork all of your medication bottles with you to this visit. ) Cassandra Quezada PA-C [Primary Care Provider] - Diet: Heart Healthy and Low Sodium (2gm) Fluids: 1500ml (6 cups) Addtl Attending Provider Instructions: Mr Baum. You came to the hospital for shortness of breath with activity. You were evaluated and noted to have congestive heart failure and atrial fibrillation. You also had COVID 19 infection and received treatment while in the hospital. You were comanaged with the Adhesion Tester. You required diuresis. You are being discharged on lasix 40mg daily. You were started on metoprolol for heart rate control. You were also started on blood thinner called eliquis to reduce risk of stroke from Atrial fibrillation (Afib). It is very important that you follow up with your Primary Doctor as well as your Adhesion Tester. It was a pleasure taking care of you. Pending Studies at Discharge: No Stand-Alone Forms: My [facility] Novadiol, Smoking Cessation Medications and DC Order Prescriptions: New Eliquis 5 mg Tablet 5 mg PO BID Qty: 60 RF: 0 metoprolol succinate 100 mg tablet extended release 24 hr 100 mg PO BID Qty: 60 RF: 0 furosemide [Lasix] 40 mg tablet 40 mg PO DAILY Qty: 30 RF: 0 Continued atorvastatin 80 mg tablet 80 mg PO HS Qty: 90 RF: 3 lisinopril 40 mg tablet 40 mg PO QAM Qty: 30 RF: 11 aspirin 81 mg tablet,delayed release (DR/EC) 81 mg PO QAM RF: 0 nitroglycerin 0.4 mg Tablet, Sublingual 1 dose Sublingual UD PRN (Reason: Chest Pain) RF: 0 omega [id number]-fish oil [Fish Oil] 1,000 mg (120 mg-180 mg) Capsule 1 cap PO QAM RF: 0 psyllium Packet 1 packet PO DAILY RF: 0 Discharge Orders: Discharge Order (Routine); Ordered 05/16/21 Ordered By: Janneth Beaver Admission Data Admit Date/Time: 05/10/21 18:16 Attending Provider: Janneth Beaver I. Admit Provider: Dilan Valenzuela Primary Care Provider: Cassandra Quezada Other Providers: Dlian Valenzuela ; Sherwin Melendrez ; Laurent Mathur ; Juliocesar Bradley ; Prieto Bernal ; Reggie Chun Jr ; José Miguel Cat ; Paige Gates ; Nemo Delarosa ; Skyler Flynn ; Skyler Roy ; Sebastien Fields ; Zoë Clifton ; Nataliya Whalen ; Jordan Lee ; Silas Leslie ; Rafa Mcnally Other Interventions: Discharge Summary Assessment (RN) Last Done: 05/16/21 17:18
== END 2021-05-16 18:50 | disposition home or self-care (01) | DRG 291 ==
LOC: ED 16:27 → 2S 18:16 → SUATTDRO 18:16 → 2S 20:57 → 2E 05-11 12:28